=== PATIENT | male | born 1990 | race Caucasian/White ===

== ENCOUNTER → 2017-08-16 16:41 | Outpatient (CLI) | payer OTHER, SELFPAY ==
[2017-08-16 19:35] LABS: Free T4 (Free Thyroxine) 1.17 ng/dl (0.76-1.46); Thyroid Stimulating Hormone 5.03 uIU/ml (0.358-3.740)
== END ==
PROVIDERS: PCP Family Medicine; Visit Provider Family Medicine
DX: E03.9 Hypothyroidism, unspecified (principal)
CPT/HCPCS: 36415; 84439; 84443

== ENCOUNTER → 2018-06-10 16:24 | Outpatient (CLI) | payer OTHER, SELFPAY ==
[2018-06-10 18:57] LABS: Free T4 (Free Thyroxine) 1.36 ng/dl (0.76-1.46); Thyroid Stimulating Hormone 3.13 uIU/ml (0.358-3.740)
== END ==
PROVIDERS: Visit Provider Family Medicine
DX: E03.9 Hypothyroidism, unspecified (principal)
CPT/HCPCS: 36415; 84439; 84443

== ENCOUNTER → 2018-12-23 15:42 | Outpatient (CLI) | payer OTHER, SELFPAY ==
[2018-12-23 18:13] LABS: Free T4 (Free Thyroxine) 0.94 ng/dl (0.76-1.46); Thyroid Stimulating Hormone 4.47 uIU/ml (0.358-3.740)
== END ==
PROVIDERS: Visit Provider Family Medicine
DX: E03.9 Hypothyroidism, unspecified (principal)
CPT/HCPCS: 36415; 84439; 84443

== ENCOUNTER → 2019-07-16 10:34 | Outpatient (CLI) | payer OTHER, SELFPAY ==
[2019-07-16 13:47] LABS: Free T4 (Free Thyroxine) 0.93 ng/dl (0.78-2.19)
[2019-07-16 14:01] LABS: Thyroid Stimulating Hormone 3.93 uIU/mL (0.465-4.68)
== END ==
PROVIDERS: Visit Provider Family Medicine
DX: E03.9 Hypothyroidism, unspecified (principal)
CPT/HCPCS: 36415; 84439; 84443

== ENCOUNTER 2020-05-13 17:51 | Emergency (ER) | payer OTHER, SELFPAY ==
[2020-05-13 18:51] VITALS: BP 112/64; PULSE 61; RESP 16; O2SAT 99; BMI 25.9
--- NOTE | 2020-05-13 18:54 | HMH.EDUTC ---
[facility] [place] Impression: Close exposure to COVID-19 virus Disposition: Home, Self-Care Condition on Discharge: Good Instructions: DI for COVID-19 (Suspected or Confirmed ), Preventing the Spread of Coronavirus Discharge Instructions Additional Instructions: *Monitor Temp, Over the counter Motrin or Tylenol as directed/as needed Tylenol every 4 hours and Motrin every 6 hours (as long as your family doctor has told you that you can take it) for fever or pain. and straight to ER if unable to lower temp less than 101.0 after medication given Follow up IMMEDIATELY for new or worsening symptoms or no Noticeable improvement over the next 48-72 hours. 911 for difficulty breathing or swallowing You were tested for today for COVID19 your test result should be back in the next 24-48 hours, you may call to the [facility] to see if your test results are back in the next 48 hours [phone] [facility] hours are 9am-9pm You was given a handout with instructions for Self Quarantine and Self isolation for while you wait on test results and what to do if they are positive If you are positive the Health Dept will be contacting you also Referrals: Luis Felipe Upton MD [Primary Care Provider] - As needed Forms: Work/School Release Time of Disposition: 18:58 Medical Decision Making - Zhen Inquiry Pt receiving controlled substance: No Zhen was queried for this patient: No Vital Signs: 05/13/20 18:51 Pulse Rate [Right] 61 Respiratory Rate 16 Blood Pressure [Right Arm] 112/64 Blood Pressure Mean [Right Arm] 80 02 Sat by Pulse Oximetry 99 Orders (Tests/Meds): ORDERS Category Date Time Status Covid-19 Nasal PCR ([facility]) Routine Lab 05/13/20 18:55 [place]dered [facility] [place] - General Stated complaint: Covid test Time Seen by Provider: 05/13/20 18:54 Mode of Arrival: Ambulatory Source of Information: Patient Limitations: No Limitations Description of Symptoms (Recalled from Triage Doc. by RN): pt advises he was exposed to covid but denies any symptoms HEENT Symptoms (Recalled from RN notes): No Resp Symptoms (Recalled from RN notes): No Skin Symptoms (Recalled from RN notes): No MS Symptoms (Recalled from RN notes): No Functional Status (Recalled from RN notes): na - History of Present Illness Provider Complaint: Patient states that his roommate recently tested positive for COVID States that he isnt having any symptoms but due to exposure he wanted to get tested - Related Data Previous Rx's Medication Instructions Recorded Triamcinolone Acetonide 1 applicatio TP TIDP PRN 7 Days #1 12/28/18 tube methylPREDNISolone [Medrol] 4 mg PO DIRECTED 6 Days #21 12/28/18 [email or web address] Allergies Allergy/AdvReac Type Severity Reaction Status Date / Time No Known Allergies Allergy Unverified 04/30/17 14:53 - Worker's Comp Is this a Worker's Comp case?: No [facility] History - Hepatitis A Screen Drug use history?: No High risk sexual behaviors?: No History of sexually transmitted infection?: No Currently employed?: No Childcare worker?: No Do you have indoor plumbing?: Yes Do you have electricity?: Yes Attestation statement:: This patient has been screened for Hepatitis A risk factors. I have reviewed the patient's past medical history: Yes - Social History Smoking Status: Never smoker Alcohol Intake: never Occupational Status: employed ROS Obtained: Yes All systems reviewed & no additional complaints, Yes Systems reviewed as appropriate & no additional complaints - Constitutional Constitutional: Reports system reviewed and no additional complaints, except as docu, Denies body ache, Denies chills, Denies fever(s), Denies headache(s) - ENT Ears, Nose, Mouth, and Throat: Reports system reviewed and no additional complaints, except as docu, Denies nasal congestion, Denies nasal discharge, Denies sore throat - Cardiovascular Cardiovascular: Reports system reviewed and no additional complaints, except as docu - R
[2020-05-13 19:01] VITALS: BP 112/64; PULSE 87; RESP 16; TEMP 36.9; O2SAT 98
--- NOTE | 2020-05-14 13:22 | PC.NURSE ---
patient notified of positive covid results
== END 2020-05-13 19:02 | disposition home or self-care (01) ==
PROVIDERS: Emergency Provider Nurse Practitioner; PCP Family Medicine
DX: U07.1 COVID-19 (principal)
CPT/HCPCS: 99202; G0463; U0003

== ENCOUNTER 2020-05-21 17:59 | Emergency (ER) | payer OTHER, SELFPAY ==
[2020-05-21 18:20] VITALS: BP 136/78; PULSE 75; RESP 19; TEMP 36.8; O2SAT 98; BMI 26.2
--- NOTE | 2020-05-21 18:38 | HMH.EDUTC ---
[facility] [place] Disposition Clinical Impression: Encounter for laboratory testing for COVID-19 virus Disposition: Home, Self-Care Condition on Discharge: Good Instructions: DI for COVID-19 (Suspected or Confirmed ), Coronavirus Disease 2019, Preventing the Spread of Coronavirus Discharge Instructions Additional Instructions: *Monitor Temp, Over the counter Motrin or Tylenol as directed/as needed Tylenol every 4 hours and Motrin every 6 hours (as long as your family doctor has told you that you can take it) for fever or pain. and straight to ER if unable to lower temp less than 101.0 after medication given Follow up IMMEDIATELY for new or worsening symptoms or no Noticeable improvement over the next 48-72 hours. 911 for difficulty breathing or swallowing You were tested for today for COVID19 your test result should be back in the next 24-48 hours, you may call to the [facility] to see if your test results are back in the next 48 hours [phone] [facility] hours are 9am-9pm You was given a handout with instructions for Self Quarantine and Self isolation for while you wait on test results and what to do if they are positive If you are positive the Health Dept will be contacting you also The U.S. Centers for Disease Control and Prevention has updated its guidelines for when employees can return to work after aly COVID-19. The CDC issued new guidance December 01 that employees can return to work and resume other normal activities after getting the virus provided they meet each of these criteria: At least 10 days have passed since they first had symptoms, or 10 days have passed since an initial positive test if they had no symptoms They have been fever-free for 24 hours without the aid of fever-reducing medication, such as acetaminophen or ibuprofen All other COVID-related symptoms continue to improve Referrals: Luis Felipe Upton MD [Primary Care Provider] - As needed Forms: Work/School Release Time of Disposition: 18:39 Medical Decision Making - Zhen Inquiry Pt receiving controlled substance: No Zhen was queried for this patient: No Vital Signs: 05/21/20 18:20 Temperature 98.2 F Temperature Source Oral Pulse Rate [Right Brachial] 75 Respiratory Rate 19 Blood Pressure [Right Arm] 136/78 Blood Pressure Mean [Right Arm] 97 Blood Pressure Source [Right Arm] Automatic Cuff Blood Pressure Position [Right Arm] Sitting 02 Sat by Pulse Oximetry 98 Oxygen Delivery Method Room Air Orders (Tests/Meds): ORDERS Category Date Time Status Covid-19 Nasal PCR ([facility]) Routine Lab 05/21/20 18:25 Received [facility] [place] HPI - General Stated complaint: Covid 19 Test for work Time Seen by Provider: 05/21/20 18:38 Mode of Arrival: Ambulatory Source of Information: Patient Limitations: No Limitations Description of Symptoms (Recalled from Triage Doc. by RN): PATIENT REQUESTING COVID TEST. STATES HE TESTED POSITIVE LAST SATURDAY. DENIES SYMPTOMS HEENT Symptoms (Recalled from RN notes): No Resp Symptoms (Recalled from RN notes): No Skin Symptoms (Recalled from RN notes): No MS Symptoms (Recalled from RN notes): No Functional Status (Recalled from RN notes): WNL - History of Present Illness Provider Complaint: Patient states that he tested positive last week for COVID States that he has to get retested for work States that they told him he had to have a negative test or release to come back to work - Related Data Previous Rx's Medication Instructions Recorded Triamcinolone Acetonide 1 applicatio TP TIDP PRN 7 Days #1 12/28/18 tube methylPREDNISolone [Medrol] 4 mg PO DIRECTED 6 Days #21 12/28/18 [email or web address] Allergies Allergy/AdvReac Type Severity Reaction Status Date / Time No Known Allergies Allergy Verified 05/21/20 18:38 - Worker's Comp Is this a Worker's Comp case?: No [facility] History - Hepatitis A Screen Drug use history?: No High risk sexual behaviors?: No History of sexually transmitted infection?: No Currently empl
[2020-05-21 18:54] VITALS: BP 136/78; PULSE 75; RESP 19; TEMP 36.8; O2SAT 98
--- NOTE | 2020-05-22 21:16 | PC.NURSE ---
ATTEMPTED TO CALL PT ABOUT COVID RESULT. NO ANSWER.
--- NOTE | 2020-05-23 10:56 | PC.NURSE ---
patient notified of positive covid results
== END 2020-05-21 18:55 | disposition home or self-care (01) ==
PROVIDERS: Emergency Provider Nurse Practitioner; PCP Family Medicine
DX: U07.1 COVID-19 (principal)
CPT/HCPCS: 99202; G0463; U0003

== ENCOUNTER 2020-06-09 18:54 | Emergency (ER) | payer OTHER, SELFPAY ==
[2020-06-09 19:11] VITALS: BP 143/88; PULSE 79; RESP 18; TEMP 37.1; O2SAT 99; BMI 26.2
--- NOTE | 2020-06-09 19:18 | HMH.EDUTC ---
[facility] [place]: Blood in stool Disposition: Still a Patient Condition on Discharge: Good Referrals: Luis Felipe Upton MD [Primary Care Provider] - Time of Disposition: 19:34 Medical Decision Making - Zehn Inquiry Pt receiving controlled substance: No Zhen was queried for this patient: No Vital Signs: 06/09/20 19:11 Temperature 98.7 F Temperature Source Oral Pulse Rate [Left] 79 Respiratory Rate 18 Blood Pressure [Right Arm] 143/88 H Blood Pressure Mean [Right Arm] 106 Blood Pressure Source [Right Arm] Automatic Cuff Blood Pressure Position [Right Arm] Sitting 02 Sat by Pulse Oximetry 99 Oxygen Delivery Method Room Air Medical Decision Narrative: Discussed with patient and recommended transfer to the ED for further work up and evaluation due to blood in stool and patient agreed. Patient still denies abd pain, feeling ill etc. Patient agreed to transfer due to new onset of bright red blood in stools Called Ed spoke with Marga Abarca RN and report given and patient moved to Room 9 for further work up and evaluation [facility] [place] - General Stated complaint: Blood with bowel movement Time Seen by Provider: 06/09/20 19:18 Mode of Arrival: Ambulatory Source of Information: Patient Limitations: No Limitations Description of Symptoms (Recalled from Triage Doc. by RN): pt states he was having bright red bloody stool today. this lasted about thirty minutes. no abd pain or other symptoms. HEENT Symptoms (Recalled from RN notes): No Resp Symptoms (Recalled from RN notes): No Skin Symptoms (Recalled from RN notes): No MS Symptoms (Recalled from RN notes): No Functional Status (Recalled from RN notes): na - History of Present Illness Provider Complaint: Patient states that he went to the bathroom earlier and when he got up he noticed a large amount of bright red blood in the toilet with his stool States that he also had large amount of blood on tissue. State that he has not had any diarrhea, no constipation, no abdominal pain States that he did not strain nor has history of hemorrhoids States that he has never had this happen before States that he eats healthy and not having any pain or discomfort at this time. - Related Data Previous Rx's Medication Instructions Recorded Triamcinolone Acetonide 1 applicatio TP TIDP PRN 7 Days #1 12/28/18 tube methylPREDNISolone [Medrol] 4 mg PO DIRECTED 6 Days #21 12/28/18 [email or web address] Allergies Allergy/AdvReac Type Severity Reaction Status Date / Time No Known Allergies Allergy Verified 05/21/20 18:38 - Worker's Comp Is this a Worker's Comp case?: No [facility] History - Hepatitis A Screen Drug use history?: No High risk sexual behaviors?: No History of sexually transmitted infection?: No Currently employed?: No Childcare worker?: No Do you have indoor plumbing?: Yes Do you have electricity?: Yes Attestation statement:: This patient has been screened for Hepatitis A risk factors. I have reviewed the patient's past medical history: Yes Laterality Cases: Bilateral: Tonsillectomy - Social History Smoking Status: Never smoker Alcohol Intake: never Occupational Status: employed ROS Obtained: Yes All systems reviewed & no additional complaints, Yes Systems reviewed as appropriate & no additional complaints - Constitutional Constitutional: Reports system reviewed and no additional complaints, except as docu, Denies body ache, Denies chills, Denies headache(s) - Gastrointestinal Gastrointestingal: Reports: bright red blood in stools. Denies: abdominal pain, coffee ground emesis, cramping, diarrhea, vomiting blood Comments: Reports large amount of bright red blood in toilet after he had a BM earlier denies history of hemorrhoids and state that he has never had this before Physical Exam - General General appearance: alert, in no apparent distress - Respiratory Respiratory exam: Present: normal lung sounds bilaterally. Absent: res
[2020-06-09 19:35] VITALS: BP 138/84; PULSE 79; RESP 15; TEMP 36.6; O2SAT 98; BMI 26.2
[2020-06-09 20:06] LABS: Basophils # 0.1 K/mm3 (0-0.2); Basophils % 0.7 % (0.1-2.0); Eosinophils # 0.4 K/mm3 (0.0-0.4); Eosinophils % 5.2 % (0.1-12.0); Hematocrit 48.8 % (42.0-52.0); Hemoglobin 16.8 g/dL (14.1-18.0); Lymphocytes # 2.6 K/mm3 (0.7-4.5); Lymphocytes % 37.9 % (10-50); Mean Corpuscular HGB Conc 34.5 g/dL (31.8-35.4); Mean Corpuscular Hemoglobin 31.6 pg (27.0-31.2); Mean Corpuscular Volume 91.5 fl (80-94); Mean Platelet Volume 7.3 fl (7.4-10.4); Monocytes # 0.5 K/mm3 (0.1-1.0); Monocytes % 7.7 % (1.7-9.3); Neutrophils # 3.4 K/mm3 (1.8-7.8); Neutrophils % 48.5 % (37.0-80.0); Platelet Count 204 K/mm3 (142-424); Red Blood Count 5.34 M/mm3 (4.60-6.20)
[2020-06-09 20:09] LABS: Chloride 100 mmol/L (98-107); Potassium 3.9 mmoL/L (3.5-5.1); Sodium 138 mmol/L (136-145)
[2020-06-09 20:11] LABS: Blood Urea Nitrogen 29 mg/dl (9-20); Creatinine Clearance Estimated 120 mL/min (50-200); Estimated Glomerular Filt Rate 72 ml/min (>60); GFR (African American) 87 ML/MIN (>60)
[2020-06-09 20:12] LABS: Alanine Aminotransferase 33 U/L (12-78); Albumin Level 4.9 g/dl (3.5-5.0); Albumin/Globulin Ratio 1.7 (1.1-1.8); Alkaline Phosphatase 51 U/L (38-126); Anion Gap 11.9 mEq/L (5-15); Aspartate Amino Transferase 40 U/L (17-59); Bilirubin,Total 0.6 mg/dl (0.2-1.3); Carbon Dioxide 30 mmol/L (22.0-30.0); Globulin 2.9 g/dL (1.3-3.2); Total Protein,Serum 7.8 g/dl (6.3-8.2)
[2020-06-09 20:13] LABS: Calcium 9.9 mg/dl (8.4-10.2); Glucose 118 mg/dl (74-100)
--- NOTE | 2020-06-09 20:14 | HMH.EDGENADL ---
ED Disposition Clinical Impression: Blood in stool Disposition: Still a Patient Condition on Discharge: Good Instructions: DI for Gastrointestinal Bleeding Additional Instructions: He may have internal hemorrhoids noted on exam. Use Preparation H, sitz bath's, and a high-fiber diet to try to avoid complications in the future. Follow-up with your doctor for further management. Immediately return if any lightheadedness/shortness of breath, chest pain, worsening bright red blood per rectum, abdominal pain, other new concerning symptoms. Referrals: Luis Felipe Upton MD [Primary Care Provider] - - Critical Care Critical Care Time: No Attestation: On 06/09/20, the high probability of a clinically significant, sudden or life threatening deterioration of the following system(s) required my full and direct attention, intervention and personal management. The time I documented below is in addition to time spent performing reported procedures but includes the following listed in this critical care notation. Medical Decision Making - Medical Records Medical records reviewed: Yes: I reviewed the patient's medical records. - Zhen Inquiry Pt receiving controlled substance: No Vital Signs: 06/09/20 19:11 06/09/20 19:35 Temperature 98.7 F 97.8 F Temperature Source Oral Oral Pulse Rate [Left] 79 79 Respiratory Rate 18 15 Blood Pressure [Right Arm] 143/88 H 138/84 Blood Pressure Mean [Right Arm] 106 102 Blood Pressure Source [Right Arm] Automatic Cuff Automatic Cuff Blood Pressure Position [Right Arm] Sitting Sitting 02 Sat by Pulse Oximetry 99 98 Oxygen Delivery Method Room Air Room Air - Lab Data Lab Results 06/09/20 19:40: WBC 7.0, RBC 5.34, Hgb 16.8, Hct 48.8, MCV 91.5, MCH 31.6 H, MCHC 34.5, RDW 13.0, Plt Count 204, MPV 7.3 L, Neut % (Auto) 48.5, Lymph % (Auto) 37.9, Jennings % (Auto) 7.7, Eos % (Auto) 5.2, Baso % (Auto) 0.7, Neut # (Auto) 3.4, Lymph # (Auto) 2.6, Jennings # (Auto) 0.5, Eos # (Auto) 0.4, Baso # (Auto) 0.1 06/09/20 19:40: Sodium 138, Potassium 3.9, Chloride 100, Carbon Dioxide 30, Anion Gap 11.9, BUN 29 H, Creatinine 1.20, Estimated Creat Clear 120, Estimated GFR 72, Est GFR ( Amer) 87, Glucose 118 H, Calcium 9.9, Total Bilirubin 0.6, AST 40, ALT 33, Alkaline Phosphatase 51, Total Protein 7.8, Albumin 4.9, Globulin 2.9, Albumin/Globulin Ratio 1.7 06/09/20 20:25: Stool Occult Blood Positive A Result diagrams: 06/09/20 19:40 06/09/20 19:40 Orders (Tests/Meds): ORDERS Category Date Time Status Urinalysis and Microscopic Stat Lab 06/09/20 19:47 Ordered Medical Decision Narrative: Patient presents with bright red blood per rectum x1 episode today. No lightheadedness. No abdominal pain. Differential includes IBS versus IBD versus anal fissure versus hemorrhoid. I do believe patient may be suffering from hemorrhoids. Basic lab work checked confirming a heme positive stool with a normal hemoglobin. No indication for patient be hospitalized. I went over sitz bath's, Preparation H, and a high-fiber diet or conservative management. He agrees with the above listed plan. Patient discharged in stable condition with instructions to follow-up with his PCP for further management. He will return immediately if worsening bright red blood per rectum, lightheadedness, abdominal pain, nausea/vomiting, other new concerning symptoms. Assessment: Bright red blood per rectum Disposition: Home with follow-up General Adult HPI - General Chief complaint: GI Bleed Stated complaint: Blood with bowel movement Time Seen by Provider: 06/09/20 19:18 Mode of Arrival: Family Vehicle Limitations: No Limitations Description of Symptoms (Recalled from ER Triage Doc. by RN): pt describes having a bowel movement at 1830, followed by moderate bright red blood. states he never has had anything like it before and has no other associated symptoms. was seen at [facility] and sent to er. patient further denies n/v/d. denies a
[2020-06-09 20:33] LABS: Occult Blood,Stool Positive (Negative)
[2020-06-09 21:03] VITALS: BP 137/84; PULSE 76; RESP 14; TEMP 36.6; O2SAT 98
== END 2020-06-09 21:05 | disposition still patient (30) ==
LOC: UTC 18:58 → ER 19:30
PROVIDERS: Emergency Medicine; Emergency Provider Emergency Medicine; PCP Family Medicine
DX: K92.1 Melena (principal); K64.8 Other hemorrhoids
CPT/HCPCS: 80053; 82272; 85025; 99282; G0328

== ENCOUNTER 2024-01-16 15:13 | Outpatient (CLI) | payer BC, SELFPAY ==
--- NOTE | 2024-01-16 15:22 | CT_ITS ---
PROCEDURE INFORMATION: Exam: CT Abdomen And Pelvis With Contrast Exam date and time: 01/16/2024 4:58 PM Age: 33 years old Clinical indication: Abdominal pain; Localized; Right lower quadrant (rlq); Additional info: Rlq pain; R/O appendicitis TECHNIQUE: Imaging protocol: Computed tomography of the abdomen and pelvis with contrast. Radiation optimization: All CT scans at this facility use at least one of these dose optimization techniques: automated exposure control; mA and/or kV adjustment per patient size (includes targeted exams where dose is matched to clinical indication); or iterative reconstruction. Contrast material: ISOVUE; Contrast volume: 75 ml; Contrast route: IV; Other contrast: Oral, gastro, 30; COMPARISON: No relevant prior studies available. FINDINGS: Lungs: There is a calcified granuloma at the medial right lung base. Liver: Normal. Gallbladder and biliary ducts: No acute process. Pancreas: Normal. Spleen: Normal. Adrenal glands: The adrenal glands appear normal. Kidneys and ureters: There are no soft tissue renal masses or hydronephrosis. Stomach and bowel: The stomach, small bowel, and colon are well-distended and show no evidence of wall thickening, masses, or obstruction. Appendix: No evidence of appendicitis. Intraperitoneal space: Unremarkable. Vasculature: The abdominal aorta and its major branches appear normal without evidence of aneurysm or stenosis. There are pelvic phleboliths. Lymph nodes: No lymphadenopathy. Urinary bladder: There is significant inflammatory change within the right lower quadrant. There is a 4.9 x 4.6 x 3.8 cm multiloculated fluid collection (image 353 series 4 and image 33 series 604). There is likely reactive wall thickening of the adjacent urinary bladder. Reproductive: No acute process. Bones/joints: The visualized osseous structures of the abdomen and pelvis appear normal for patient age. Soft tissues: Unremarkable. IMPRESSION: Findings consistent with perforated appendicitis with a 5 cm abscess.
[2024-01-16] MEDS: IOPAMIDOL-370 (76%);100ML BOTTLE 75 ML IV (16:50)
[2024-01-16] MEDS: DIATRIZOATE MEG 66% & DIATRIZOATE NA 10% 30ML UDC 30 ML PO (16:50)
[2024-01-16] MEDS: SODIUM CHLORIDE 0.9% 10ML SYR (RAD ONLY) 10 ML IV (16:50)
== END 2024-01-16 23:59 | disposition home or self-care (01) ==
LOC: RAD 15:15
PROVIDERS: PCP Physician Assistant; Visit Provider Physician Assistant
DX: R10.31 Right lower quadrant pain (principal)
CPT/HCPCS: 74177; Q9963; Q9967

== ENCOUNTER 2024-02-28 17:54 | Emergency (ER) | payer BC, SELFPAY ==
--- NOTE | 2024-02-28 18:16 | ED_ITS ---
Discharge Plan Disposition Patient Disposition: Home, Self-Care Condition: Good Prescriptions Prescriptions: New azithromycin [Zithromax] 250 mg tablet 250 mg PO UD DOSE PK Qty: 6 0RF Rx Instructions: Take two (2) tablets today, then one (1) tablet days #2 thru #5 methylprednisolone 4 mg Tablets,Dose Pack 4 mg PO DIRECTED 6 Days Qty: 21 0RF Rx Instructions: Take 1 pack as directed for 6 days dzghbdmxqzjejfq-qskxbftqt-JJ [Bromfed DM] 2-30-10 mg/5 mL Syrup 5 ml PO Q6H PRN (Reason: Cough) Qty: 240 0RF No Action levothyroxine 125 mcg tablet 125 mcg PO DAILY Patient Comments: TAKE 1 TABLET BY MOUTH DAILY IN THE MORNING ON AN EMPTY STOMACH Referrals Follow up/Referrals: Jolynn Quick PA [Primary Care Provider] - See instructions Activity Restrictions/Add. Instructions Additional Instructions/Restrictions: Drink plenty of fluids. Take tylenol or ibuprofen for pain or fever. Take the medications as directed. Follow up with your regular doctor. GO TO THE ER FOR ANY WORSENING SYMPTOMS Clinical Impressions Clinical Impression: Sinusitis Instructions Patient Instructions: Sinusitis, DI for Sinusitis Print Language Print Language: Bruneian Discharge ED Provider: Stevie Finn [facility] HPI General Stated complaint: Runny nose,congestion,pressure,around eyes,VALERIO,cou Time Seen by Provider: 02/28/24 18:16 Related Data Home Medications ?Medication ?Instructions ?Recorded ?Confirmed levothyroxine 125 mcg tablet 125 mcg PO DAILY 02/28/24 02/28/24 Previous Rx's ?Medication ?Instructions ?Recorded azithromycin 250 mg tablet 250 mg PO UD DOSE PK #6 tabs 02/28/24 (Zithromax) kiymjiaeafkkgpk-pdksngsaubvoqqc-QJ 5 ml PO Q6H PRN Cough #240 mL 02/28/24 2 mg-30 mg-10 mg/5 mL oral syrup (Bromfed DM) methylprednisolone 4 mg tablets in 4 mg PO DIRECTED 6 days #21 tabs 02/28/24 a dose pack Allergies Allergy/AdvReac Type Severity Reaction Status Date / Time No Known Allergies Allergy Verified 05/21/20 18:38 [facility] Disclaimer: The information contained in this section may have been updated after the patient was seen, as this information can be updated by other users. Social History Smoking Status: Never smoker alcohol intake: never current occupational status: employed Travel in the last 8 weeks: None ROS Obtained: Yes All systems reviewed & no additional complaints except as documented Constitutional Constitutional: Reports poor appetite Eyes Eyes: Reports system reviewed and no additional complaints, except as documented ENT Ears, Nose, Mouth, and Throat: Reports as per HPI Cardiovascular Cardiovascular: Reports system reviewed and no additional complaints, except as documented and Denies chest pain Respiratory Respiratory: Denies shortness of breath, Reports chest congestion, Reports cough, Denies stridor and Denies wheezing Gastrointestinal Gastrointestingal: Reports system reviewed and no additional complaints, except as documented; Denies abdominal pain, diarrhea or vomiting Musculoskeletal Musculoskeletal: Reports system reviewed and no additional complaints, except as documented and Denies arthralgias Integumentary/Breasts Skin/Breast: Reports system reviewed and no additional complaints, except as documented and Denies rash Neurologic Neurologic: Denies paresthesias Allergic/Immunologic Allergic/Immunologic: Denies wheezing Physical Exam General General appearance: alert and in no apparent distress Eye Eye exam: Present normal appearance, PERRL and EOMI ENT ENT exam: Present mucous membranes moist and normal external ear exam Expanded ENT Exam External ear exam: Present normal external inspection TM/Canal exam: Bilateral TM: erythema and bulging Nose exam: Absent sinus tenderness Nasal speculum exam: Bilateral: normal Mouth exam: Present normal external inspection; Absent drooling Teeth exam: Present normal inspection Throat exam: Present tonsillar erythema and tonsillomegaly Neck Neck exam: Present normal inspection, full ROM and trachea midline; Absent tenderness, lymphadenopathy or thyromegaly Chest Chest inspection: Present normal inspection and symmetric chest wall rise; Absent tenderness or rash Respiratory Respiratory exam: Present normal lung sounds bilaterally; Absent respiratory distress, wheezes, stridor or accessory muscle use Cardiovascular Cardiovascular exam: Present regular rate, normal rhythm and normal heart sounds Abdominal Exam Abdominal exam: Present soft; Absent distention, tenderness, guarding, rebound or rigidity Extremities Exam Extremities exam: Present normal inspection, full ROM and normal capillary refill; Absent tenderness or calf tenderness Back Exam Back exam: Present normal inspection and full ROM; Absent tenderness Neurological Exam Neurological exam: Present alert and oriented X3 Psychiatric Psychiatric exam: Present normal affect and normal mood Skin Skin exam: Present warm, dry, intact and normal color Lymphatic Lymphatic Findings: no adenopathy Medical Decision Making Medical Records Medical records reviewed: No I reviewed the patient's medical records. Screening: Per USPSTF and CDC recommendations, given the prevalence of disease in our region, it is our hospital?s policy to screen for HIV and viral Hepatitis for all patients aged 18 and over and those with ongoing risk factors. Zhen Inquiry Pt receiving controlled substance: No
[2024-02-28 18:20] VITALS: BP 140/84; PULSE 72; RESP 18; TEMP 37.7; O2SAT 99; BMI 29.7
[2024-02-28 18:55] VITALS: BP 140/84; PULSE 72; RESP 18; TEMP 37.7
== END 2024-02-28 18:57 | disposition home or self-care (01) ==
PROVIDERS: Emergency Provider Nurse Practitioner Family; PCP Physician Assistant
DX: J01.90 Acute sinusitis, unspecified (principal)
CPT/HCPCS: 99213; G0381

== ENCOUNTER 2024-11-06 13:00 | Outpatient (RCR) | payer BC, SELFPAY | END 2024-11-06 23:59 | disposition home or self-care (01) | LOC: OT 13:00 | PROVIDERS: PCP Physician Assistant; Visit Provider Family Medicine | DX: M25.511 Pain in right shoulder (principal) | CPT/HCPCS: 97014; 97110; 97140; 97166; 97530; G0283 ==

== ENCOUNTER 2024-12-01 11:00 | Outpatient (RCR) | payer BC, SELFPAY | END 2024-12-01 23:59 | disposition home or self-care (01) | LOC: OT 11:00 | PROVIDERS: PCP Physician Assistant; Visit Provider Family Medicine | DX: M25.511 Pain in right shoulder (principal) | CPT/HCPCS: 97014; 97032; 97035; 97110; 97140; 97168; 97530; G0283 ==

== ENCOUNTER → 2024-12-03 07:52 | Outpatient (RCR) | payer BC, SELFPAY ==
--- NOTE | 2024-12-03 09:37 | HMH.PTOPEV ---
PT Outpatient Evaluation Rehab PT Outpatient Evaluation Start: 12/03/24 07:58 Freq: Status: Active Protocol: Document 12/03/24 07:58 BEVERLYSILVANA (Rec: 12/03/24 09:37 WATSON [id number]) E-signed By Danielle Ellis, PT Outpatient Therapy Subjective History Subjective History Pt is a 34 y/o male who reports onset of R anterolateral shoulder pain in August. 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 Pt states his appendix ruptured and he had to have surgery causing him to be sedentary from January to August. Pt reports pain started following restarting weight lifting when he recovered. Pt denies having imaging of the R shoulder. Pt reports continued R anterolateral shoulder pain exacerbated by repetitive reaching overhead and lifting especially chest press and lat pulldowns. Pt also reports mild right sided upper trapezius and scapular pain he thinks is due to compensating when lifting. Pt reports his shoulder also catches anteriorly when he lifts his arm to the side with nonpainful popping. Pt denies clunking, instability, swelling, numbness/tingling, or decreased moulder operator strength. Pt denies further comorbidities to report. 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 Chief Complaint Pain,Catches/Locks Symptom Type Ache,Sharp Symptoms Relieved By Rest/Positioning,Ice Symptoms Aggravated Physical Activity,Lifting By Prior Functional None Limitations Current Functional Reaching,Lifting,Recreation Activity Limitations Symptom Description Intermittent Level of pain today 0 (0-10) Pain scale - at its 0 best (0-10) Pain scale - at its 7 worst (0-10) Shoulder/Elbow Eval Shoulder Objective Measurements Palpation Tenderness tenderness shoulder right exam standard tenderness over the right bicipital tendon shoulder exam standard Shoulder Palpation Tenderness Findings Shoulder Palpation 2/4 TTP of long head bicep tt, pec major/min insertion, Overall Comment greater tub, infra Posture Shoulder Posture (L) Rounded,(R) Rounded,(L) Forward,(R) Forward Sitting Position Shoulder Posture (L) Rounded,(R) Rounded,(L) Forward,(R) Forward Standing Position Scapular Posture (R) Winged Standing Position Shoulder ROM Right Shoulder Abduction 160 Active Range of Motion (degrees) Shoulder Flexion 170 Active Range of Motion (degrees) Query Text: Shoulder External 70 Rotation Active Range of Motion ( degrees) Shoulder Internal 80 Rotation Active Range of Motion ( degrees) pain with active ROM right shoulder exam standard Shoulder MMT Lower Trapezius 4 Good Strength Grade Middle Trapezius 4 Good Strength Grade Rhomboids Strength 4+ Good+ Grade Serratus Anterior 4 Good Strength Grade Upper Trapezius/ 4+ Good+ Levator Scapulae Shoulder Abduction 4+ Good+ Strength Grade Shoulder Extension 4+ Good+ Strength Grade Shoulder Flexion 4+ Good+ Strength Grade Shoulder Horizontal 4+ Good+ Abduction Strength Grade Shoulder External 4 Good Rotation Strength Grade Shoulder Internal 4+ Good+ Rotation Strength Grade Elbow Objective Measurements QuickDA Activities Please rate your ability to do the following activities in the last week by selecting the number below the appropriate response. 1. Open a tight or Mild difficulty new jar. 2. Do heavy Mild difficulty cook apprentice pastry (e. g., wash cardona, floors). 3. Carry a shopping No difficulty bag or briefcase. 4. Wash your back. No difficulty 5. Use a knife to No difficulty cut food. 6. Recreational Severe difficulty activities in which you take some force or impact through your arm, shoulder, or hand (e.g., golf, hammering, tennis, etc.). 7. During the past Not at all week, to what extent has your arm, shoulder or hand problem interfered with your normal social activities with family, friends , neighbors or groups? 8. During the past Moderately limited week, were you limited in your work or other regular daily activites as a result of your arm, shoulder or hand problem? 9. Arm, shoulder or Severe hand pain. 10. Tingling (pins None and needles) in your arm, shoulder or hand. 11. During the past Mild difficulty week, how much difficulty have you had sleeping because of the pain in your arm, shoulder or hand? Quick DASH 22 Work Module (optional) The following questions ask about the impact of your arm, shoulder or hand problem on your ability to work (including homemaking if that is your main work role). Please indicate what Automatic Gluing Machine Operator your job/work is: Do you work? Yes 1. Using your usual Severe difficulty technique for your work? 2. Doing your usual Severe difficulty work because of arm, shoulder or hand pain? 3. Doing your work Severe difficulty as well as you would like? 4. Spending your Moderate difficulty usual amount of time doing your work? Quick Dash Work 15 Module Score Sports/Performing Arts Module (optional) The following questions relate to the impact of your arm, shoulder or hand problem on playing your musical instrument or sport or both. If you play more than one sport or instrument (or play both), please answer with respect to the activity which is most important to you. Please indicate the Server Systems Administrator sport or instrument which is most important to you: 1. Using your usual Severe difficulty technique for playing your instrument or sport? 2. Playing your Severe difficulty musical instrument or sport because of arm, shoulder or hand pain? 3. Playing your Severe difficulty musical instrument or sport as well as you would like? 4. Spending your Moderate difficulty usual amount of time practicing or playing your instrument or sport? Quick Dash Sports/ 15 Performing Art Score Outpatient Therapy Assessment Impairments Problems/ Palpation Tenderness,Impaired Range of Motion,Impaired Impairmments Strength,Impaired Lifting,Impaired Recreational Activities,Subjective C/O Pain,Impaired Self Care/Self Management Prognosis Rehab Potential Good Clinical Impression Consistent with Yes Diagnosis Short Term Goals Number of Weeks 3 Increase Range of Yes: demonstrate improved scapulohumeral rhythm with Motion forward flexion Improve Quick Dash Yes Score Decrease Subjective Yes: Improve pain at worst to 5/10 to improve overall C/O Pain QOL Improve Self Care/ Yes Self Management Patient to be Ind w/ Yes HEP Senior Care Goals Number of Weeks 6 Decreased Palpation Yes: 0-1/4 TTP of R shoulder complex Tenderness Increase Range of Yes: Improve R shoulder AROM to WNL Motion Increase Strength Yes: Improve R shoulder/scapular strength to 5/5 grossly to assist w/ occupation Restore Ability to Yes: with pain 3/10 or less to assist with occupational Lift Objects /recreational activities Overhead Improve Quick Dash Yes: Improve Activities score to 17 or less, Work to 10 Score or less Decrease Subjective Yes: Improve pain at worst to 3/10 to improve overall C/O Pain QOL Outpatient Therapy Plan of Care Treatment Plan May Include Therapeutic Exercise Yes Including Home Exercise Program Manual Therapy Yes Techniques Neuromuscular Re- Yes education Therapeutic Yes Activities to Return to Previous Functional/Work Level ADL/Self Care Yes Education Mechanical Traction Yes Dry Needling Yes Thermal Modalities Yes Electrical Yes Stimulation Ultrasound/ Yes Phonophoresis Iontophoresis Yes Vasopneumatic Yes Compression Pump Massage Yes Eval/Re-Eval Yes Frequency Times per week 2 Duration Number of Weeks 4-6 Addendums This patient is a No candidate for social or vocational rehab ? Patient/Guardian Yes verbally acknowledges understanding of treatment program and consents to further treatment? Patient/Guardian Yes verbally acknowledges understanding of diagnosis, prognosis and goals for treatment? Eval Complexity PT Charges 94045 - Low Complexity PHYSICIAN CERTIFICATION: I certify the specified therapy services for Wade Galarza are required, authorized, and reviewed every 30 days.
== END ==
LOC: PT 07:52
PROVIDERS: PCP Physician Assistant; Visit Provider Physician Assistant
DX: M25.511 Pain in right shoulder (principal)
CPT/HCPCS: 20560; 97014; 97110; 97161; G0283

== ENCOUNTER 2025-01-06 10:00 | Outpatient (RCR) | payer BC, SELFPAY ==
--- NOTE | 2024-12-31 17:42 | HMH.RHREAS ---
Rehab Reassessment Rehab OP Re-assessment Start: 12/15/24 11:01 Freq: Status: Active Protocol: Document 12/31/24 11:15 FADISean (Rec: 12/31/24 17:41 WATSON [id number]) E-signed By KRISTEN GillSH Activities Please rate your ability to do the following activities in the last week by selecting the number below the appropriate response. 1. Open a tight or No difficulty new jar. 2. Do heavy No difficulty mortgage loan funder (e. g., wash cardona, floors). 3. Carry a shopping No difficulty bag or briefcase. 4. Wash your back. Moderate difficulty 5. Use a knife to No difficulty cut food. 6. Recreational Moderate difficulty activities in which you take some force or impact through your arm, shoulder, or hand (e.g., golf, hammering, tennis, etc.). 7. During the past Not at all week, to what extent has your arm, shoulder or hand problem interfered with your normal social activities with family, friends , neighbors or groups? 8. During the past Slightly limited week, were you limited in your work or other regular daily activites as a result of your arm, shoulder or hand problem? 9. Arm, shoulder or Moderate hand pain. 10. Tingling (pins None and needles) in your arm, shoulder or hand. 11. During the past Mild difficulty week, how much difficulty have you had sleeping because of the pain in your arm, shoulder or hand? Quick DASH 19 Work Module (optional) The following questions ask about the impact of your arm, shoulder or hand problem on your ability to work (including homemaking if that is your main work role). Please indicate what Barometers Calibrator your job/work is: 1. Using your usual Moderate difficulty technique for your work? 2. Doing your usual Mild difficulty work because of arm, shoulder or hand pain? 3. Doing your work Moderate difficulty as well as you would like? 4. Spending your Mild difficulty usual amount of time doing your work? Quick Dash Work 10 Module Score Sports/Performing Arts Module (optional) The following questions relate to the impact of your arm, shoulder or hand problem on playing your musical instrument or sport or both. If you play more than one sport or instrument (or play both), please answer with respect to the activity which is most important to you. Please indicate the Weight lifting sport or instrument which is most important to you: 1. Using your usual Moderate difficulty technique for playing your instrument or sport? 2. Playing your Mild difficulty musical instrument or sport because of arm, shoulder or hand pain? 3. Playing your Moderate difficulty musical instrument or sport as well as you would like? 4. Spending your Mild difficulty usual amount of time practicing or playing your instrument or sport? Quick Dash Sports/ 10 Performing Art Score Rehab Re-assessment Subjective Subjective Pt reports he feels 25% improved since starting PT. 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 Pt reports pain at worst as 6/10 on VAS. Pt reports the catching sensation when elevating his shoulder and pain with lateral raises has improved although he continues to experience a non-painful grinding sensation of the front of the shoulder with elevation. Pt reports compliance with HEP with good tolerance. Objective Objective Notes Observation: mild scapular winging noted at rest and with overhead elevation Palpation: 1/4 TTP of long head of bicep tt, pectoralis major insertion, subacromial space, rhomboid R shoulder AROM: abduction 175, flexion 170, ER 70, IR 80 R shoulder MMT: flex 5/5 (p!), abd 5/5, ext 4+/5, IR 4+ /5, ER 4+/5 (p!) Scap strength: 4/5 grossly Special tests: + empty can Assessment Progress Assessment Progressing as Expected Assessment Notes Pt has attended 5 PT treatment sessions consisting of aerobic exercise, scapular strengthening, UE stretching , postural re-education, manual therapy, dry needling, modalities and HEP with good tolerance. Pt demonstrated slight improvement in subjective report of pain, QuickDASH score, and shoulder AROM this date compared to the initial evaluation. 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 Overall, the pt would continue to benefit from skilled PT to further improve subjective report of pain, scapular strength, scapular positioning, and functional/occupational activity tolerance to improve overall QOL. PT Patient Goals PT Short Term 3 weeks: 3/4 Patient Goals 1. Demonstrate improved scapulohumeral rhythm with forward flexion -MET 2. Improve QuickDASH score -MET 3. Improve pain at worst to 5/10 to improve overall QOL - NOT MET 4. Verbalize compliance with HEP. -MET PT Long-Term Patient 6 weeks: 2/6 Goals 1. 0-/ TTP of R shoulder complex -MET 2. Improve R shoulder AROM WNL -MET 3. Improve R shoulder/scapular strength 5/5 grossly to assist with occupation -NOT MET 4. Lift overhead with pain 3/10 or less to assist with occupational/recreational activities -NOT MET 5. Improve QuickDASH activities score to 17 or less, work to 10 or less -PARTIALLY MET 6. Improve pain at worst to 3/10 to improve overall QOL -NOT MET Plan Plan Continue initial POC without modification Frequency of Therapy 2x/week Duration of Therapy 4 more weeks Therapeutic Exercise Yes Including Home Exercise Program Manual Therapy Yes Techniques Neuromuscular Re- Yes education Therapeutic Yes Activities to Return to Previous Functional/Work Level ADL/Self Care Yes Education Dry Needling Yes Thermal Modalities Yes Electrical Yes Stimulation Ultrasound/ Yes Phonophoresis Iontophoresis Yes Vasopneumatic Yes Compression Pump Massage Yes Eval/Re-Eval Yes Time and Billing Re-Eval Time 12 Re-Eval Billing 0 Units Charge for PT No reassessment? Charge for OT No reassessment? PHYSICIAN CERTIFICATION: I certify the specified therapy services for Wade Galarza are required, authorized, and reviewed every 30 days.
== END 2025-01-06 23:59 | disposition home or self-care (01) ==
LOC: PT 10:00
PROVIDERS: PCP Physician Assistant; Visit Provider Physician Assistant
DX: M25.511 Pain in right shoulder (principal)
CPT/HCPCS: 20560; 97010; 97014; 97110; 97140; G0283

== ENCOUNTER 2025-01-20 14:05 | Outpatient (CLI) | payer BC, SELFPAY ==
--- OUTSIDE RECORDS SUMMARY | 2024-02-14 09:00 | XMS_ITS ---
Author Organization [facility] Address [address] [place] [id number] Care Team Providers Care Living Manager Name Role Phone Luis Felipe Upton Primary Care Provider [phone] Jolynn Quick Unavailable [phone] Allergies No Known Allergies Results Component Value [...] Location Date Provider Diagnosis [facility] [address] [facility] [address] [place] [phone] 02/14/2024 Jolynn Quick Ruptured appendix K35.32 Assessments [...] Details Follow Up: with surgeon, Renee son: Provider Name:Jolynn herrera, 01/20/2025 01:45:00 PM, [address] [facility], [address], [place], [id number], Progress Notes * VLADIMIR GALARZAOB:1990 (34 yo M)Acc No.[id number]:02/14/2024 Progress Notes Patient: COLBY ISLAS Provider: JOHN Hernandez :1990 A ge:33 Y S ex:Male Date:02/14/2024 Address:[address] [place] [id number] Pcp:Luis Felipe Upton Subjective: * Chief Complaints: [...] Procedure: H ER - passed out 04/25/15, [facility] ER-syncope episode 10/26, [facility] ER - broken bone in hand 11/2018. [...] Procedure Codes: 3 6416 CAPILLARY BLOOD DRAW, 61780 CBC WITH AUTO DIFF * Follow Up: w ith surgeon * Images: Billing Information: * Visit Code: 53653 Office Visit, Est Pt., Level 3. * Procedure Codes: 90453 CAPILLARY BLOOD DRAW. 67784 CBC WITH AUTO DIFF. * Electronic signature of JOHN Roberto on 01/20/2025 at 02:08 PM EDT Sign off status: Pending * Provider: JOHN Hernandez Date: 1 Generated for Joi graves/Haley/eTransmitting on: 0 01/20/2025 02:08 PM EDT History and Physical Notes * HPI [...]
--- OUTSIDE RECORDS SUMMARY | 2024-04-02 06:00 | XMS_ITS ---
Author Organization [facility] Address [address] [place] [id number] Care Team Providers Care Junk Dealer Name Role Phone Luis Felipe Upton Primary Care Provider [phone] Jolynn Quick Unavailable [phone] Allergies No Known Allergies Results Component Value Reference Range Notes CBC Fingerstick (in house) Reviewed date:04/02/2024 12:53:23 PM Interpretation: Performing Lab: Notes/Report: wbc 6.9 3.5 - 10 lym 28.1 15 - 50 mid 7.2 2 - 15 gran 64.7 35 - 80 rbc 4.90 3.5 - 5.5 hgb 15.2 11.5 - 16.5 hct 44.2 35 - 55 mcv 90.2 75 - 100 mch 31.0 25 - 35 mchc 34.4 31 - 38 plat 142 100 - 400 REASON FOR VISIT RLQ pain Medications Medication SIG (Take, Route, Fr equency, Duration) Notes Start Date End Date Status Multivitamin - 1 tab(s) orally once a day Active Synthroid 125 MCG 1 tablet in the morn ing on an empty stomach Orally Once a day; Duration: 90 days 08/16/2023 Active Ibuprofen 600 MG 1 tablet with food o r milk as needed Orally Three times a day, prn 04/02/2024 Active Vital Signs Blood pressure systolic 120 mm Hg 04/02/20 24 Blood pressure diastolic 62 mm Hg 024 Heart Rate 70 /min 04/02/2024 Height 71 in 04/02/2024 Weight 225.4 lbs 04/02/2024 BMI 31.43 kg/m2 04/02/2024 Encounters Encounter Location Date Provider Diagnosis [facility] [address] [place], [place] [id number] 04/02/2024 Jolynn Quick Right lower quadrant pain R10.31 and History of appendicitis Z87.19 Assessments Encounter Date Diagnosis (ICD Code) Assessment Notes Treatment Notes Treatment Clinical Notes Section Notes 04/02/2024 Right lower quadrant pain (ICD-10 - R10.31) Patient has no pain today. WBC is normal and patient is afebrile. Will continue to monitor and keep appt at [facility]. 04/02/2024 History of appendicitis (ICD-10 - Z87.19) Plan Of Treatment Medication Medication Name Sig Start Date Stop Date Notes Ibuprofen 600 MG 1 tablet with food o r milk as needed Orally Three times a day, prn 04/02/2024 Treatment Notes Assessment Notes Right lower quadrant pain Patient has no pain today. WBC is normal and patient is afebrile. Will continue to monitor and keep appt at [facility]. Next Appt Details Follow Up: prn, Reason: Provider Name:Jloynn herrera, 01/20/2025 01:45:00 PM, [address] [facility], [address], [place], [id number], Progress Notes * VLADIMIR GALARZAOB:1990 (34 yo M)Acc No.[id number]:04/02/2024 Progress Notes Patient: COLBY ISLAS Provider: JOHN Hernandez :1990 A ge:34 Y S ex:Male Date:04/02/2024 Address:[address] [place] [phone] Pcp:Luis Felipe Upton Subjective: * Chief Complaints: * 1 . RLQ pain. * HPI: P ain: Pt is here today for right lower quadrant pain. Pt sts he is here to talk about his ongoing appendicitis issues and pain and sts he needs his wbc checked. He has an appt with a different surgeon at [facility] for a second opinion the first week of April. He started having pain in the RLQ again yesterday but it is better today after taking some motrin. * ROS: C ARDIOLOGY: no C hest pain. n o S hortness of breath. ? D ERMATOLOGY: no R niall. n o H jyoti. U ROLOGY: no D ifficulty urinating. n o B lood in urine. * Medical History: H ypothyroidism, COVID 19 - 05/09/2020. * Surgical History: m ole removed . * Hospitalization/Major Diagno stic Procedure: H ER - passed out 04/25/15, [facility] ER-syncope episode 10/26, [facility] ER - broken bone in hand 11/2018. [...] empty stomach Orally Once a day , Medication List reviewed and reconciled with the patient * Allergies: N .K.D.A. Objective: * Vitals: W t:225.4, Temp:97.1, BP:120/62, HR:70, O2 Sat:99% on RA, Nurse:NARDA, Ht: 71, BMI:31.43. * Examination: G eneral Examination: General Appearance: N AD. C hest: n ormal shape and expansion. H eart: R SR. L ungs: c lear to auscultation. A bdomen: bowel sounds present, soft, nontender. Assessment: * Assessment: 1. R ight lower quadrant pain - R10.31 (Primary) 2 . H istory of appendicitis - Z87.19 Plan: * Treatment: Value Reference Range w bc 6.9 3.5 - 10 * l ym 28.1 15 - 50 * m id 7.2 2 - 15 * g ran 64.7 35 - 80 * r bc 4.90 3.5 - 5.5 * h gb 15.2 11.5 - 16.5 * h ct 44.2 35 - 55 * m cv 90.2 75 - 100 * m ch 31.0 25 - 35 * m chc 34.4 31 - 38 * p lat 142 100 - 400 * Mary Anne Arredondo 04/02/2024 10:2 9:35 AM > , Provider reviewed results while patient in office.Jolynn Quick 04/02/2024 12:53:21 PM > Notes: Patient has no pain today. WBC is normal and patient is afebrile. Will continue to monitor and keep appt at [facility].?? * Procedure Codes: 9 4760 [place], [address] CAPILLARY BLOOD DRAW, 37800 CBC WITH AUTO DIFF * Follow Up: p rn * Images: Billing Information: * Visit Code: 06648 Office Visit, Est Pt., Level 3. * Procedure Codes: [address] [place]. [address] CAPILLARY BLOOD DRAW. 03047 CBC WITH AUTO DIFF. * Electronic signature of JOHN Roberto on 01/20/2025 at 02:07 PM EDT Sign off status: Pending * Provider: JOHN Hernandez Date: 1 06/02/2023 Generated for Joi graves/Haley/eTransmitting on: 0 01/20/2025 02:07 PM EDT History and Physical Notes * HPI (History of Present Illness) Category Sub-Category Detail Notes Category Not es Pain Pt is here toda y for right lower quadrant pain. Pt sts he is here to talk about his ongoing appendicitis issues and pain and sts he needs his wbc checked. He has an appt with a different surgeon at [facility] for a second opinion the first week of April. He started having pain in the RLQ again yesterday but it is better today after taking some motrin. Examination Category Sub-Category Detail Notes Category Not es General Examination Heart: RSR Lungs: clear to auscultatio n Abdomen: bowel sounds present , soft, nontender General Appearance: NAD Chest: normal shape and exp ansion
--- OUTSIDE RECORDS SUMMARY | 2024-08-19 06:45 | XMS_ITS ---
Author Organization [facility] Address [address] [place] [id number] Care Team Providers Care Coffee Shop Manager Name Role Phone Luis Felipe Upton Primary Care Provider [phone] Jolynn Quick Unavailable [phone] Allergies No Known Allergies Results Component Value Reference Range Notes P-T4 Free (thyroxine) Reviewed date:08/21/2024 02:33:44 PM Interpretation:normal Performing Lab: Notes/Report: Test performed by [facility] [address] [place] [address] , [address], [place] [address] Taurus Urena MD, Rrt CLIA: [id number] Thyroxine Free (free T4) 1.31 0.86-1.76 ng/dL P-TSH Reviewed date:08/21/2024 02:33:44 PM Interpretation:7.96 Performing Lab: Notes/Report: Test performed by [facility] [address] [place] [address] , [facility] [address], [place] [address] Taurus Urena MD, Rrt CLIA: [id number] TSH 7.96 0.43-5.25 mU/L REASON FOR VISIT refills Medications Medication SIG (Take, Route, Fr equency, Duration) Notes Start Date End Date Status Synthroid 125 MCG 1 tablet in the morn ing on an empty stomach Orally Once a day; Duration: 30 days Active Multivitamin - 1 tab(s) orally once a day Active Ibuprofen 600 MG 1 tablet with food o r milk as needed Orally Three times a day, prn 04/02/2024 Not-Taking Problems Problem Type SNOMED Code ICD Code Onset Dates Problem Status W/U Status Risk Notes Problem Body mass index 30.00 to 34.99 ([id number] 107) BMI 31.0-31.9,a dult (Z68.31) Active confirmed Vital Signs Blood pressure systolic 126 mm Hg 08/20/19 25 Blood pressure diastolic 82 mm Hg 025 Heart Rate 52 /min 08/19/2024 Height 71 in 08/19/2024 Weight 226.0 lbs 08/19/2024 BMI 31.52 kg/m2 08/19/2024 Encounters Encounter Location Date Provider Diagnosis [facility] [address] [place] [id number] 08/19/2024 Jolynn Ynes Hypothyroidism (acqu ired) E03.9 and BMI 31.0-31.9,adult Z68.31 Assessments Encounter Date Diagnosis (ICD Code) Assessment Notes Treatment Notes Treatment Clinical Notes Section Notes 08/19/2024 Hypothyroidism (acquired) (ICD-10 - E03.9) 08/19/2024 BMI 31.0-31.9,adult (ICD-10 - Z68.31) Plan Of Treatment Next Appt Details Follow Up: via phone to repo rt test results, Reason: Provider Name:Jolynn Shaheen Callaway y, 01/20/2025 01:45:00 PM, [address], [address], [place], [phone], Progress Notes * VLADIMIR GALARZAOB:1990 (34 yo M)Acc No.[id number]:08/19/2024 Progress Notes Patient: COLBY ISLAS Provider: JOHN Hernandez :1990 A ge:34 Y S ex:Male Date:08/19/2024 Address:[address] [place] [address] [id number] Pcp:Luis Felipe Upton Subjective: * Chief Complaints: * 1 . Refills. * HPI: E ndocrinology: The pt is here today for a check-up on Hypothyroidism and refills. Pt states he is doing good and denies any new concerns today. Pt needs refills sent to [facility] in [place]. * ROS: D ERMATOLOGY: no R niall. n o H jyoti. G ASTROENTEROLOGY: no N ausea. n o V omiting. n o D iarrhea.? U ROLOGY: no D ifficulty urinating. n o B lood in urine. * Medical History: H ypothyroidism, COVID 19 - 05/09/2020. * Surgical History: m ole removed . * Hospitalization/Major Diagno stic Procedure: H ER - passed out 04/25/15, [facility] ER-syncope episode 10/26, [facility] ER - broken bone in hand 11/2018. * Family History: F ather: alive 66 yrs. M other: alive 63 yrs. 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 Objective: * Vitals: W t: 226.0, Temp: 97.8, BP: 126/82, HR: 52, Nurse: EMILY, Ht: 71, BMI:31.52. * Examination: G eneral Examination: General Appearance: N AD. N kirk: supple, no lymphadenopathy. C hest: n ormal shape and expansion. H eart: R SR. L ungs: c lear to auscultation. Assessment: * Assessment: 1. H ypothyroidism (acquired) - E03.9 (Primary) 2 . B IN 31.0-31.9,adult - Z68.31 Plan: * Treatment: Value Reference Range T hyroxine Free (free T4) 1.31 0.86-1.76 - ng/d L Kandy Alejandro 08/21/2024 02: 33:39 PM > see TE ?LAB: P-TSH (Collection Date & Time - 08/20/2024 08:06 AM)?7.96* Value Reference Range T SH 7.96 H 0.43-5.25 - mU/L * Kandy Lim 08/21/2024 02: 33:39 PM > see TE * Procedure Codes: 3 074F SYST BP LT 130 MM HG, 3079F DIAST BP 80-89 MM HG * Follow Up: v ia phone to report test results * Images: Billing Information: * Visit Code: 07855 Office Visit, Est Pt., Level 3. * Procedure Codes: 3074F SYST BP LT 130 MM HG. 3079F DIAST BP 80-89 MM HG. * Electronic signature of JOHN Roberto on 01/20/2025 at 02:07 PM EDT Sign off status: Pending * Provider: JOHN Hernandez Date: 0 08/19/2024 Generated for Caitlyni star/Haley/eTransmitting on: 0 01/20/2025 02:07 PM EDT History and Physical Notes * Examination Category Sub-Category Detail Notes Category Not es General Examination Heart: RSR Lungs: clear to auscultatio n General Appearance: NAD Neck: supple, no lymphaden opathy Chest: normal shape and exp ansion
--- OUTSIDE RECORDS SUMMARY | 2024-10-21 10:30 | XMS_ITS ---
[facility] Address [address] [place] [id number] Care Team Providers Care Benefits Specialist Name Role Phone Luis Felipe Upton Primary Care Provider Jolynn Quick Unavailable [phone] Allergies No Known Allergies Results Component Value Reference Range Notes P-T4 Free (thyroxine) Reviewed date:10/23/2024 04:08:15 PM Interpretation:Normal Performing Lab: Notes/Report: Test performed by [facility] [address] [place] [address] , [address], [place] [address] Taurus Urena MD, Freight Solicitor CLIA: [id number] Thyroxine Free (free T4) 1.45 0.86-1.76 ng/dL P-TSH Reviewed date:10/23/2024 04:08:23 PM Interpretation:Normal Performing Lab: Notes/Report: Test performed by [facility] [address] [place] [address] , [address], [place] [address] Taurus Urena MD, Freight Solicitor CLIA: [id number] TSH 4.56 0.43-5.25 mU/L Reason For Referral Diagnosis 1 Acute pain of right shoulder (M25.511) [facility] Referring Provider First Name Jolynn Referring Provider Last Name Ynes Referring Provider Speciality Physician Skin Washer Referred Provider Physical Therapy, . Referred Provider Specialty Physical The rapist General Notes Jolynn Quick 03/2025 02:53:44 PM > Pt would like to go to [facility] PT, [place] 10/21/2024 02:55:45 PM > faxed to [facility] PT Referral Priority Routine REASON FOR VISIT Check Up and Labs Medications Medication SIG (Take, Route, Frequency, Duration) Notes Start Date End Date Status Levothyroxine Sodium 137 MCG 1 tablet in the morning on an empty stomach Orally Once a day; Duration: 30 day(s) 08/21/2024 Active Ibuprofen 600 MG 1 tablet with food o r milk as needed Orally Three times a day, prn 04/02/2024 Active Multivitamin - 1 tab(s) orally once a day Active Vital Signs Blood pressure systolic 120 mm Hg 10/22/19 25 Blood pressure diastolic 80 mm Hg 025 Heart Rate 72 /min 10/21/2024 Height 71 in 10/21/2024 Weight 225.8 lbs 10/21/2024 BMI 31.49 kg/m2 10/21/2024 Encounters Encounter Location Date Provider Diagnosis [facility] [address] [facility] [address] [facility] [address] [place] [id number] 10/21/2024 Jolynn Quick Acute pain of right shoulder M25.511 and Hypothyroidism (acquired) E03.9 Assessments Encounter Date Diagnosis (ICD Code) Assessment Notes Treatment Notes Treatment Clinical Notes Section Notes 10/21/2024 Acute pain of right shoulder (ICD-10 - M25.511) 10/21/2024 Hypothyroidism (acquired) (ICD-10 - E03.9) Plan Of Treatment Medication Medication Name Sig Start Date Stop Date Notes Ibuprofen 600 MG 1 tablet with food o r milk as needed Orally Three times a day, prn 04/02/2024 Referrals Referral Date Details 10/21/2024 10/21/2024, . Physic al Therapy Next Appt Details Follow Up: via phone to repo rt test results, Reason: Provider Name:Jolynn herrera, 01/20/2025 01:45:00 PM, [address] [facility], [address], [place], [id number], Progress Notes * VLADIMIR GALARZAOB:1990 (34 yo M)Acc No.[id number]:10/21/2024 Progress Notes Patient: Mabel YOUSIF COLBY Provider: JOHN Hernandez :1990 A ge:34 Y S ex:Male Date:10/21/2024 Address:[address] [place] [address], [id number] Pcp:Luis Felipe Upton Subjective: * Chief Complaints: * 1 . Check Up and Labs. * HPI: E ndocrinology: The pt is here for a check-up on Hypothyroidism. Pt states he is having pain in the right shoulder and would like to get a referral for PT. Pt states he is needing refills sent to [facility] in [place]. * ROS: D ERMATOLOGY: no R niall. n o H jyoti. G ASTROENTEROLOGY: no N ausea. n o V omiting. n o D iarrhea.? U ROLOGY: no D ifficulty urinating. n o B lood in urine. * Medical History: H ypothyroidism, COVID 19 - 05/09/2020. * Surgical History: m ole removed . * Hospitalization/Major Diagno stic Procedure: H ER - passed out 04/25/15, [facility] ER-syncope episode 10/26, [facility] ER - broken bone in hand 11/2018. [...] tab(s) orally once a day , Taking Levothyroxine Sodium 137 MCG Tablet 1 tablet in the morning on an empty stomach Orally Once a day , Not-Taking Ibuprofen 600 MG Tablet 1 tablet with food or milk as needed Orally Three times a day, prn , Medication List reviewed and reconciled with the patient * Allergies: N .K.D.A. Objective: * Vitals: W t: 225.8, Temp: 98.3, BP: 120/80, HR: 72, Nurse: EMILY, Ht: 71, BMI:31.49. * Examination: G eneral Examination: General Appearance: N AD. H EENT: u nremarkable.?Oral cavity: n o lesions, mucosa moist and WNL, no erythema. N kirk: s upple, no lymphadenopathy. C hest: n ormal shape and expansion. H eart: R SR. L ungs: c lear to auscultation. N eurologic Exam: I ntact, gait normal. S kin: n ormal, no rash.?Peripheral pulses: n ormal (2+) bilaterally. E xtremities: n o leg edema. ? S houlder / Upper arm: Shoulder: r ight. I nspection: n o swelling or redness. P alpation: t enderness on subdeltoid bursa, tenderness on bicipital tendon, some posterior tenderness. R kaylee of motion: n ormal flexion, extension & rotation. S trength:?normal. Assessment: * Assessment: 1. A cute pain of right shoulder - M25.511 (Primary) 2 . H ypothyroidism (acquired) - E03.9 Plan: * Treatment: 2. H ypothyroidism (acquired) L AB: P-T4 Free (thyroxine) (Collection Date & Time - 10/21/2024 01:59 PM) N ormal Value Reference Range T hyroxine Free (free T4) 1.45 0.86-1.76 - ng/d L * Jolynn Quick 10/21/2024 0 2:57:22 PM EDT >room [address], [place] 10/23/2024 04:08:12 PM EDT >pt informed ?LAB: P-TSH (Collection Date & Time - 10/21/2024 01:59 PM)?Normal* Value Reference Range T SH 4.56 0.43-5.25 - mU/L * Jolynn Quick 10/21/2024 0 2:57:22 PM EDT >room [address], [place] 10/23/2024 04:08:20 PM EDT >pt informed * Procedure Codes: 1 036F TOBACCO NON-USER, G8783 BP SCR PRFRM RCMDD DEFIND SCR INTVL, G8752 MOST RECENT SYSTOLIC BP < 140MM HG, G8754 MOST RECENT DIASTOLIC BP < 90MM HG * Follow Up: v ia phone to report test results * Images: Billing Information: * Visit Code: 52754 Office Visit, Est Pt., Level 4. * Procedure Codes: 1036F TOBACCO NON-USER. G8783 BP SCR PRFRM RCMDD DEFIND SCR INTVL. G8752 MOST RECENT SYSTOLIC BP < 140MM HG. G8754 MOST RECENT DIASTOLIC BP < 90MM HG. * Electronic signature of JOHN Roberto on 01/20/2025 at 02:07 PM EDT Sign off status: Pending * Provider: JOHN Hernandez Date: 0 10/21/2024 Generated for Caitlyni ng/Faxing/eTransmitting on: 0 01/20/2025 02:07 PM EDT History and Physical Notes * Examination Category Sub-Category Detail Notes Category Not es General Examination HEENT: unremarkable Heart: RSR Lungs: clear to auscultatio n Extremities: no leg edema General Appearance: NAD Skin: normal, no rash Neurologic Exam: Intact, gait normal Neck: supple, no lymphaden opathy Oral cavity: no lesions, mucosa m oist and WNL, no erythema Peripheral pulses: normal (2+) bilatera lly Chest: normal shape and exp ansion Shoulder / Upper arm Range of motion: normal flexion, extension & rotation Strength: normal Shoulder: right Inspection: no swelling or redne ss Palpation: tenderness on subdel toid bursa, tenderness on bicipital tendon, some posterior tenderness Consultation Request Notes Referral Date Referring Provider Referred Provider Not es 10/21/2024 Jolynn Quick Physical Therapy, .
--- OUTSIDE RECORDS SUMMARY | 2025-01-20 14:07 | XMS_ITS | Clinical Summary ---
Author Organization [facility] Address [address] [place] [address] Care Team Providers Care Traffic Manager Name Role Phone Ye Durand MD Primary Care Provider [phone] Allergies No known active allergies Medications levothyroxine (Synthroid, Levoxyl) 125 MCG tablet Take 1 tablet (125 mcg) by mouth 1 (one) time each day before breakfast. Active acetaminophen (Tylenol) 500 MG tablet Take 2 tablets (1,000 mg) by mouth every 6 (six) hours. 100 tablet 4 Active Additional Information Patient not taking.Reported on 02/03/2024 gabapentin (Neurontin) 300 MG capsule Take 1 capsule (300 mg) by mouth 3 (three) times a day. 30 capsule 4 Active Additional Information Patient not taking.Reported on 02/03/2024 ibuprofen 600 MG tablet Take 1 tablet (600 mg) by mouth every 6 (six) hours. 30 tablet 4 Active Additional Information Patient not taking.Reported on 02/03/2024 lidocaine (Lidoderm) 5 % patch Apply 1 patch topically 1 (one) time each day at the same time over 12 hours. Remove & discard patch within 12 hours or as directed by MD. 7 patch 4 Active Additional Information Patient not taking.Reported on 02/03/2024 methocarbamol (Robaxin) 750 MG tablet Take 1 tablet (750 mg) by mouth 4 (four) times a day. 30 tablet 4 Active Additional Information Patient not taking.Reported on 02/03/2024 oxyCODONE (Roxicodone) 5 MG immediate release tablet Take 2 tablets (10 mg) by mouth every 4 (four) hours if needed for moderate pain. 30 tablet 4 Active Additional Information Patient not taking.Reported on 02/03/2024 naloxone (Narcan) 4 mg/0.1 mL nasal spray 1. Give 1 spray in nostril for no/slow breathing or cannot wake after opioid use 2. Call 911 3. Repeat in other nostril if symptoms continue 1 each Active Additional Information Patient not taking.Reported on 02/03/2024 sodium chloride 0.9 % flush 10 mL by Intracatheter route every 12 (twelve) hours. 280 mL Active Additional Information Patient not taking.Reported on 02/25/2024 senna-docusate (Oxana-Colace) 8.6-50 MG tablet Take 1 tablet by mouth 1 (one) time each day. 30 tablet Active Additional Information Patient not taking.Reported on 02/03/2024 Active Problems Problem Noted Date Diagnosed Date Appendicitis 02/29/2024 BMI 29.0-29.9,adult 02/25/2024 Perforated appendicitis 01/16/2024 Overview (01/18/2024): IR drain placed 01/16 Family History Medical History Relation Name Comments Diabetes type II Father Diabetes type II Mother Relation Name Status Comments Father Mother Social History Tobacco Use Types Packs/Day Years Used Date Smoking Tobacco: Never Smokeless Tobacco: Never Tobacco Cessation:Counseling Given: Not Answered Alcohol Use Standard Drinks/Week Comments Never 0 (1 standard drink = 0.6 oz pur e alcohol) CAGE ASSESSMENT Answer Date Recorded Cage unable to access Not on file 01/17/2024 Cage max number of drinks Not on file 2023 Cage Beverages a week Not on file 01/17/2024 Have you ever felt you should CUT down on your d rinking? 0 01/17/2024 Have you been ANNOYED by people criticizing your drinking? 0 01/17/2024 Have you felt GUILTY about your drinking? 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 0 01/17/2024 CAGE Questionnaire Score 0 024 Sex and Gender Information Value Date Recorded Sex Assigned at Male 01/17/2024 2:40 PM EDT Legal Sex Male 7:50 PM EDT Gender Identity Male 01/17/2024 2:40 PM EDT Sexual Orientation Straight 01/17/2024 2: 40 PM EDT Last Filed Vital Signs Vital Sign Reading Time Taken Comments Blood Pressure 141/84 02/25/2024 1:03 PM EDT Pulse 81 02/25/2024 12:58 PM EDT Temperature 36.3 C (97.4 F) 02/25/2024 12:58 PM EDT Respiratory Rate 18 01/27/2024 11:41 AM EDT Oxygen Saturation 98% 02/25/2024 12:58 PM EDT Inhaled Oxygen Concentration - - Weight 101 kg (222 lb 6.4 oz) 02/25/2024 12:58 P M EDT Height 185.4 cm (6' 1 ) 02/25/2024 12:58 PM EDT Body Mass Index 29.34 02/25/2024 12:58 PM EDT Plan of Treatment Health Maintenance Due Date Last Done Comments UKY-Depression Screening 1992 UKY-Infant/Child/Adol SDOH Screenings 1992 [id number] Vaccine (#1) 1997 UKY-Varicella Vaccines (1 of 2 - 13+ 2-dose series) 2005 UKY- SDOH Screenings 2010 UKY-Adult SDOH Screenings 2010 UKY-DTaP,Tdap,and Td Vaccines (1 - Tdap) 2011 HPV Vaccines (1 - 3-dose SCDM series) 2019 UKY-Influenza Vaccine (#1) 2025 UKY-Zoster Vaccines (1 of 2) 2042 UKY-Hepatitis B Vaccines Completed 999, 03/07/1998, 02/01/1998 UKY-HIV Screening Completed 01/16/2024 UKY-Hepatitis C Screening Completed 01/16/2024 UKY-Obesity Intervention Completed 024, 02/03/2024, 01/27/2024, Additional history exists UKY-HIB Vaccines Aged Out No longer e ligible based on patient's age to complete this topic UKY-Hepatitis A Vaccines Aged Out No longer eligible based on patient's age to complete this topic UKY-IPV Vaccines Aged Out No longer e ligible based on patient's age to complete this topic UKY-Pneumococcal Vaccine: Pediatrics (0 to 5 Years) and At-Risk Patients (6 to 49 Years) Aged Out No longer eligible based on patient's age to complete this topic UKY-Rotavirus Vaccines Aged Out No lo nger eligible based on patient's age to complete this topic Procedures Procedure Name Priority Date/Time Associated Diagnosis Comments HEPATITIS C ANTIBODY - ED W/REFLEX TO HCV QUANT PCR STAT 01/16/2024 8:35 PM EDT ED HIV 1/2 ANTIBODY/ANTIGEN SCREEN WITH REFLEX TO HIV I/II DIFFERENTIATION STAT 01/16/2024 8:35 PM EDT from Last 3 Months or Most Recently Relevant to Health Maintenance Results * ED HIV 1/2 Antibody/Antigen Screen w/Reflex to HIV 1/2 Differentiation (01/16/2024 8:35 PM EDT) HIV 1 & 2 Antibody/Antigen Screen Non Reactive Non Reactive 01/16/2024 10:26 PM EDT [facility] Comment:Screening for HIV 1 & 2 antibodies, and P24 antigen is NONREACTIVE. No confirmatory testing is required. Blood Venous blood specimen / Unknown Venipuncture / Unknown 01/16/2024 8:35 PM EDT 01/16/2024 8:44 PM EDT Jose Doran MD LAB BLOOD ORDERABLES Final Result [facility] [address] [place] [address] * Hepatitis C Antibody - ED (01/16/2024 8:35 PM EDT) Hepatitis C Antibody Negative Negative 01/16/2024 10:26 PM EDT [facility] Blood Venous blood specimen / Unknown Venipuncture / Unknown 01/16/2024 8:35 PM EDT 01/16/2024 8:44 PM EDT us Jose Doran MD LAB BLOOD ORDERABLES Final Result [facility] [address] [place] [address] from Last 3 Months or Most Recently Relevant to Health Maintenance Insurance [employer] Advance Directives * Full Code (Latest Code Status on File) Date Activated Date Inactivated Comments 01/16/2024 10:25 PM 01/19/2024 5:42 PM Question Answer Comments Patient has decision-making capacity? Yes Care Teams Traffic Manager Relationship Specialty Start Date End Date Ye Durand MD [address] [place] [address] PCP - General 09/23/20
--- NOTE | 2025-01-20 14:08 | XR_ITS ---
FINAL REPORT CLINICAL HISTORY: SHOULDER PAIN COMPARISON: None FINDINGS: 3 views of the right shoulder were obtained. There is no fracture or dislocation. The joint space is preserved. Soft tissues are unremarkable. IMPRESSION: No acute osseous abnormality of the right shoulder. Reviewed, Interpreted and Dictated by Germaine Rodgers MD Transcribed by Flory Pak Authenticated and [facility]
--- OUTSIDE RECORDS SUMMARY | 2025-01-20 14:08 | XMS_ITS | Clinical Summary ---
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 Active ondansetron ODT (ZOFRAN-ODT) 4 MG disintegrating tablet Take 1 tablet by mouth Every 6 (Six) Hours As Needed for Nausea or Vomiting. 60 tablet 1 5 Active oxyCODONE-acetamino phen (PERCOCET) 5-325 MG per tabletIndications:P erforated appendicitis Take 1 tablet by mouth Every 4 (Four) Hours As Needed for Moderate Pain. 11 tablet 5 Active docusate sodium (COLACE) 100 MG capsule Take 1 capsule by mouth 2 (Two) Times a Day. 60 capsule 5 Active Active Problems Problem Noted Date Diagnosed Date Perforated appendicitis 01/16/2024 Overview (06/23/2024): IR drain placed 01/16 Social History Tobacco Use Types Packs/Day Years Used Date Smoking Tobacco: Never Smokeless Tobacco: Never Tobacco Cessation:Counseling Given: Not Answered Alcohol Use Standard Drinks/Week Comments Never 0 (1 standard drink = 0.6 oz pur e alcohol) [facility] Utilities Answer Date Recorded In the past 12 months has e electric, gas, oil, or water company threatened to shut off services in your home? No 06/24/2024 AUDIT-C Answer Date Recorded Q1: How often do you have a drink containing alcohol? Never 06/23/2024 Q2: How many drinks containi ng alcohol do you have on a typical day when you are drinking? Patient does not drink Q3: How often do you have si x or more drinks on one occasion? Never 06/23/2024 Overall Financial Resource Strain (CARDIA) Answe r Date Recorded How hard is it for you to pa y for the very basics like food, housing, medical care, and heating? Not hard at all 06/24/2024 [facility] - Occupational Stress Questionnaire Answer Date Recorded Do you feel stress - tense, restless, nervous, or anxious, or unable to sleep at night because your mind is troubled all the time - these days? Not at all 06/24/2024 Exercise Vital Sign Answer Date Recorde d On average, how many days pe r week do you engage in moderate to strenuous exercise (like a brisk walk)? 6 days 06/24/2024 On average, how many minutes do you engage in exercise at this level? 120 min 06/24/2024 Hunger Vital Sign Answer Date Recorded Within the past 12 months, y ou worried that your food would run out before you got the money to buy more. Never true 06/24/19 25 Within the past 12 months, t he food you bought just didn't last and you didn't have money to get more. Never true 06/24/2024 PRAPARE - Transportation Answer Date Re corded In the past 12 months, has l ack of transportation kept you from medical appointments or from getting medications? No 06/13 In the past 12 months, has l ack of transportation kept you from meetings, work, or from getting things needed for daily living? No 06/24/2024 Abuse Screen Answer Date Recorded Feels Unsafe at Home or Work/School no 06/23/2024 Feels Threatened by Someone no 06/13 Does Anyone Try to Keep You From Having Contact with Others or Doing Things Outside Your Home? no 06/23/2024 Physical Signs of Abuse Present no 06/23/2024 Housing Stability Answer Date Recorded Current Living Arrangements home 06/13 Potentially Unsafe Housing Conditions none 06/24/2024 Family and Community Support Answer Juan Diego e Recorded If for any reason you need h elp with day-to-day activities such as bathing, preparing meals, shopping, managing finances, etc., do you get the help you need? I get all the help I need 06/24/2024 How often do you feel lonely or isolated from those around you? Never 06/24/2024 Employment Answer Date Recorded Do you want help finding or keeping work or a david b? Patient declined 06/24/2024 Disabilities Answer Date Recorded Difficulty Concentrating, Remembering or Making Decisions no 06/24/2024 Difficulty Managing Errands Independently no 06/24/2024 Education Answer Date Recorded Do you want help with school or training? For example, starting or completing job training or getting a high school diploma, GED or equivalent Patient declined 06/24/2024 Preferred Language Wolof 06/24/2024 PHQ-2 Answer Date Recorded Patient Health Questionnaire-2 Score 0 06/24/2024 Sex and Gender Information Value Date Recorded Sex Assigned at Not on file Legal Sex Male 10:26 AM EST Gender Identity Not on file Sexual Orientation Not on file Last Filed Vital Signs Vital Sign Reading Time Taken Comments Blood Pressure 134/78 06/26/2024 7:35 AM EST Pulse 66 06/26/2024 7:35 AM EST Temperature 37 C (98.6 F) 06/26/2024 7:35 AM EST Respiratory Rate 16 06/26/2024 7:35 AM EST Oxygen Saturation 99% 06/26/2024 7:35 AM EST Inhaled Oxygen Concentration - - Weight 99.8 kg (220 lb) 06/23/2024 8:41 AM EST Height 185.4 cm (6' 1 ) 06/23/2024 8:41 AM EST Body Mass Index 29.03 06/23/2024 8:41 AM EST Plan of Treatment Health Maintenance Due Date Last Done Comments TDAP/TD VACCINES (1 - Tdap) 2011 ANNUAL PHYSICAL 06/15/2024 COVID-19 Vaccine (2023-2 5 season) 2025 INFLUENZA VACCINE 02/10/2025 HEPATITIS C SCREENING Completed 01/16/2024 Pneumococcal Vaccine 0-49 Aged Out No longer eligible based on patient's age to complete this topic Medical Devices Implanted Type Area Supply Officer Device Identifier Shelf Expiration Date Model / Serial / Lot Clipapplr M/ Endo Ligaclip Rot 10mm /Xavier - [id number] Implanted:Qty : 1 on 06/23/2024 by Johnnie Morton MD at [facility] Implant N/A: Abdomen [employer] DIV OF J AND J 04/11/2029 [id number] / / [id number] Reload Stplr [place] Flex Gst Stnd 60 Wht - [id number] Implanted:Qty : 1 on 06/23/2024 by Johnnie Morton MD at [facility] Implant N/A: Abdomen [employer] OF J AND J 06/12/2026 [id number] / / [id number] Reload Stplr [place] Flex Gst Stnd 60 Wht - [id number] Implanted:Qty : 1 on 06/23/2024 by Johnnie Morton MD at [facility] Implant N/A: Abdomen [employer] DIV OF AND J 08/10/2026 [id number] / / [id number] Stplr Lnr Cut Prox 75mm Keith Tlc75 - [id number] Implanted:Qty : 1 on 06/23/2024 by Johnnie Morton MD at [facility] Implant N/A: Abdomen [employer] DIV OF AND J 02/09/2029 [id number] / / [id number] Stplr Tiss [id number] Std [id number] Strl 1p/U - [id number] Implanted:Qty : 1 on 06/23/2024 by Johnnie Morton MD at [facility] Implant N/A: Abdomen [employer] DIV OF AND J 02/09/2027 [id number] / / [id number] Reload Stplr Lnr Cut Prox 75mm Keith Tcr75 - [id number] Implanted:Qty : 1 on 06/23/2024 by Johnnie Morton MD at [facility] Implant N/A: Abdomen [employer] DIV OF J AND J 04/11/2029 TCR75 / / [id number] Reload Stplr Lnr Cut Prox 75mm Keith Tcr75 - [id number] Implanted:Qty : 1 on 06/23/2024 by Johnnie Morton MD at [facility] Implant N/A: Abdomen [employer] DIV OF J AND J 12/10/2028 TCR75 / / [id number] Stplr Lnr Cut 60mm Keith Reg Tx60b - [id number] Implanted:Qty : 1 on 06/23/2024 by Johnnie Morton MD at [facility] Implant N/A: Abdomen [employer] DIV OF J AND J 01/10/2029 [id number] / / [id number] Insurance [facility] [facility] [employer] Advance Directives * CPR (Attempt to Resuscitate) (Latest Code Status on File) Date Activated Date Inactivated Comments 06/23/2024 4:43 PM 06/26/2024 12:13 PM Question Answer Comments Code Status (Patient has no pulse and is not breathing): CPR (Attempt to Resuscitate) Medical Interventions (Patie nt has pulse or is breathing): Full Support Level Of Support Discussed With: Patient Care Teams Mechanical Maintenance Engineer Relationship Specialty Start Date End Date Provider, [place] [address] PCP - General 05/29/24
== END 2025-01-20 23:59 | disposition home or self-care (01) ==
LOC: RAD 14:05
PROVIDERS: PCP Physician Assistant; Visit Provider Physician Assistant
DX: M25.511 Pain in right shoulder (principal)
CPT/HCPCS: 73030

== ENCOUNTER 2025-02-02 11:00 | Outpatient (RCR) | payer BC, SELFPAY ==
--- NOTE | 2025-02-02 12:03 | HMH.RHREAS ---
Rehab Reassessment Rehab OP Re-assessment Start: 01/13/25 11:13 Freq: Status: Active Protocol: Document 02/02/25 10:59 FADISean (Rec: 02/02/25 12:03 WATSON [id number]) E-signed By KRISTEN GillDASH Activities Please rate your ability to do the following activities in the last week by selecting the number below the appropriate response. 1. Open a tight or No difficulty new jar. 2. 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 g., wash cardona, floors). 3. Carry a shopping No difficulty bag or briefcase. 4. Wash your back. Mild difficulty 5. Use a knife to No difficulty cut food. 6. Recreational Moderate difficulty activities in which you take some force or impact through your arm, shoulder, or hand (e.g., golf, hammering, tennis, etc.). 7. During the past Not at all week, to what extent has your arm, shoulder or hand problem interfered with your normal social activities with family, friends , neighbors or groups? 8. During the past Slightly limited week, were you limited in your work or other regular daily activites as a result of your arm, shoulder or hand problem? 9. Arm, shoulder or Moderate hand pain. 10. Tingling (pins None and needles) in your arm, shoulder or hand. 11. During the past No difficulty week, how much difficulty have you had sleeping because of the pain in your arm, shoulder or hand? Quick DASH 17 Rehab Re-assessment Subjective Subjective Pt reports continued R anterior and lateral shoulder pain rated 6-7/10 at worst on VAS. Pt reports pain continues to be aggravated by shoulder rotation and chest press. Pt denies pain at rest. Pt reports he flared up his shoulder last week with unknown cause so he rested all week from chest and shoulder exercises at work which helped return his symptoms to baseline. Pt reports he saw ortho on 01/25/25 and is scheduled to have a MRI with arthrogram this Saturday to assess the labrum and rotator cuff. Pt states he does not yet have a follow-up appointment scheduled with ortho to discuss the results. Objective Objective Notes Observation: mild scapular winging noted at rest and with overhead elevation Palpation: 1/4 TTP of long head of bicep tt, pectoralis major insertion, subacromial space R shoulder AROM: abduction 175, flexion 175, ER 70, IR 80 R shoulder MMT: flex 5/5 (p!), abd 5/5, ext 4+/5, IR 5/ 5, ER 4+/5 (p!) Scap strength: 4/5 grossly Special tests: + empty can Assessment Assessment Notes Pt has attended 10 PT treatment sessions consisting of aerobic exercise, scapular strengthening, UE stretching , postural re-education, manual therapy, dry needling, modalities and HEP with good tolerance. 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 Pt demonstrated no significant changes in objective or subjective outcome measure this date compared to the previous reassessment. Pt recently had an appointment with an orthopedic nurse and is scheduled to have a R shoulder MRI on 02/05/25. Overall, the pt would continue to benefit from skilled PT to further improve subjective report of pain, scapular strength, scapular positioning, and functional /occupational activity tolerance while awaiting MRI results and further orthopedic recommendations. PT Patient Goals PT Short Term 3 weeks: 3/4 Patient Goals 1. Demonstrate improved scapulohumeral rhythm with forward flexion -MET 2. Improve QuickDASH score -MET 3. Improve pain at worst to 5/10 to improve overall QOL - NOT MET 4. Verbalize compliance with HEP. 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 0-1/4 TTP of R shoulder complex -MET 2. Improve R shoulder AROM WNL -MET 3. Improve R shoulder/scapular strength 5/5 grossly to assist with occupation -NOT MET 4. Lift overhead with pain 3/10 or less to assist with occupational/recreational activities -NOT MET 5. Improve QuickDASH activities score to 17 or less, work to 10 or less -PARTIALLY MET 6. Improve pain at worst to 3/10 to improve overall QOL -NOT MET Plan Plan Continue initial PT POC while awaiting MRI results and ortho recommendations. Frequency of Therapy 2x/week Duration of Therapy 4 more weeks Therapeutic Exercise Yes Including Home Exercise Program Manual Therapy Yes Techniques Neuromuscular Re- Yes education Therapeutic Yes Activities to Return to Previous Functional/Work Level ADL/Self Care Yes Education Dry Needling Yes Thermal Modalities Yes Electrical Yes Stimulation Ultrasound/ Yes Phonophoresis Iontophoresis Yes Vasopneumatic Yes Compression Pump Massage Yes Eval/Re-Eval Yes Time and Billing Re-Eval Time 11 Re-Eval Billing 0 Units Charge for PT No reassessment? Charge for OT No reassessment? PHYSICIAN CERTIFICATION: I certify the specified therapy services for Wade Galarza are required, authorized, and reviewed every 30 days.
== END 2025-02-02 23:59 | disposition home or self-care (01) ==
LOC: PT 11:00
PROVIDERS: PCP Physician Assistant; Visit Provider Physician Assistant
DX: M25.511 Pain in right shoulder (principal)
CPT/HCPCS: 97110; 97140

== ENCOUNTER 2025-02-05 09:51 | Outpatient (CLI) | payer BC, SELFPAY ==
--- OUTSIDE RECORDS SUMMARY | 2024-02-14 09:00 | XMS_ITS ---
Author Organization [facility] Address [address] [place] [id number] Care Team Providers Care Tawer Name Role Phone Luis Felipe Upton Primary Care Provider Jolynn Quick Unavailable [phone] Allergies No Known Allergies Results Component Value Reference Range Notes CBC Fingerstick (in house) Reviewed date:02/14/2024 01:36:38 PM Interpretation: Performing Lab: Notes/Report: wbc 5.5 3.5 - 10 lym 47.3% 15 - 50 mid 5.5% 2 - 15 gran 47.2% 35 - 80 rbc 4.45 3.5 - 5.5 hgb 13.4 11.5 - 16.5 hct 39.9 35 - 55 mcv 89.6 75 - 100 mch 30.3 25 - 35 mchc 33.8 31 - 38 plat 152 100 - 400 REASON FOR VISIT Abdominal Pain RLQ Medications Medication SIG (Take, Route, Frequency, Duration) Notes Start Date End Date Status Acetaminophen 500 MG 1 capsule as needed Orally every 6 hrs Not-Taking Multivitamin - 1 tab(s) orally once a day Active Synthroid 125 MCG 1 tablet in the morn ing on an empty stomach Orally Once a day; Duration: 90 days 08/16/2023 Active Vital Signs Blood pressure systolic 130 mm Hg 02/14/20 24 Blood pressure diastolic 70 mm Hg 024 Heart Rate 62 /min 02/14/2024 Height 71 in 02/14/2024 Weight 225.9 lbs 02/14/2024 BMI 31.50 kg/m2 02/14/2024 Encounters Encounter Location Date Provider Diagnosis [facility] [address] [place] [phone] 02/14/2024 Jolynn Quick Ruptured appendix K35.32 Assessments Encounter Date Diagnosis (ICD Code) Assessment Notes Treatment Notes Treatment Clinical Notes Section Notes 02/14/2024 Ruptured appendix (ICD-10 - K35.32) Patient only has pain with certain movements. He has returned to more normal activities since the drain was pulled. CBC is normal so there does not appear to be any new infection. Will be careful lifting, pushing, and pulling and keep appt with surgeon in a week. Plan Of Treatment Treatment Notes Assessment Notes Ruptured appendix Patient only has ganesh n with certain movements. He has returned to more normal activities since the drain was pulled. CBC is normal so there does not appear to be any new infection. Will be careful lifting, pushing, and pulling and keep appt with surgeon in a week. Next Appt Details Follow Up: with surgeon, Renee son: Progress Notes * VLADIMIR GALARZAOB:1990 (34 yo M)Acc No.[id number]:02/14/2024 Progress Notes Patient: COLBY ISLAS Provider: JOHN Hernandez :1990 A ge:33 Y S ex:Male Date:02/14/2024 Address:[address] [place] [address] [place], [id number] Pcp:Luis Felipe Upton Subjective: * Chief Complaints: * 1 . Abdominal Pain RLQ. * HPI: G astroenterology: The patient is here for continued RUQ abdominal pain. Pt states the pain got some better but it started back up again yesterday. Pt rates the pain a 4/10 with certain movements. 33 year old male presents with c/o Abdominal Pain. Denies : Nausea. D enies : Vomiting. D enies : Diarrhea. D enies : Fever. * ROS: C ARDIOLOGY: no C hest pain. n o S hortness of breath. ? D ERMATOLOGY: no R niall. n o H jyoti. U ROLOGY: no D ifficulty urinating. n o B lood in urine. * Medical History: H ypothyroidism, COVID 19 - 05/09/2020. * Surgical History: m ole removed . * Hospitalization/Major Diagno stic Procedure: H ER - passed out 04/25/15, [facility] ER-syncope episode 10/26, [facility] ER - broken bone in hand 11/2018. * Family History: F ather: alive 65 yrs. M other: alive 62 yrs. * Social History: C URRENT TOBACCO USE S moking Status: Patient does NOT smoke. C affeine: no, frequency:. Home smoke detector use: yes. Marital Status: Single. Past smoking status: no. Alcohol: No. * Medications: T aking Multivitamin - Tablet 1 tab(s) orally once a day , Taking Synthroid 125 MCG Tablet 1 tablet in the morning on an empty stomach Orally Once a day , Not- Taking Acetaminophen 500 MG Capsule 1 capsule as needed Orally every 6 hrs , Medication List reviewed and reconciled with the patient * Allergies: N .K.D.A. Objective: * Vitals: W t:225.9, Temp:98.2, BP:130/70, HR:62, Nurse:EMILY, Ht: 71, BMI:31.50. * Examination: G astroenterology: General Appearance: p leasant, NAD. H eart sounds: r egular, normal S1 S2, no murmurs. L ungs: c lear, no rales or wheezes. A bdomen: BS present, soft, nontender, no guarding or rigidity. Assessment: * Assessment: 1. R uptured appendix - K35.32 (Primary) Plan: * Treatment: Value Reference Range w bc 5.5 3.5 - 10 * l ym 47.3% 15 - 50 * m id 5.5% 2 - 15 * g ran 47.2% 35 - 80 * r bc 4.45 3.5 - 5.5 * h gb 13.4 11.5 - 16.5 * h ct 39.9 35 - 55 * m cv 89.6 75 - 100 * m ch 30.3 25 - 35 * m chc 33.8 31 - 38 * p lat 152 100 - 400 * Luz Elena Lopes 02/14/2024 1:0 9:12 PM > , Provider reviewed results while patient in office.Jolynn Quick 02/14/2024 1:36:34 PM > Notes: Patient only has pain with certain movements. He has returned to more normal activities since the drain was pulled. CBC is normal so there does not appear to be any new infection. Will be careful lifting, pushing, and pulling and keep appt with surgeon in a week.?? * Procedure Codes: 3 6416 CAPILLARY BLOOD DRAW, 06848 CBC WITH AUTO DIFF * Follow Up: w [facility] surgeon * Images: Billing Information: * Visit Code: 21989 Office Visit, Est Pt., Level 3. * Procedure Codes: 66578 CAPILLARY BLOOD DRAW. 19739 CBC WITH AUTO DIFF. * Electronic signature of JOHN Roberto on 02/05/2025 at 09:53 AM EDT Sign off status: Pending * Provider: JOHN Hernandez Date: Generated for Caitlyni ng/Haley/eTransmitting on: 0 02/05/2025 09:53 AM EDT History and Physical Notes * HPI (History of Present Illness) Category Sub-Category Detail Notes Category Not es Gastroenterology Fever Vomiting Abdominal Pain Diarrhea Nausea Examination Category Sub-Category Detail Notes Category Not es Gastroenterology Heart sounds: regular, normal S1 S2, no murmurs Lungs: clear, no rales or w heezes Abdomen: BS present, soft, no ntender, no guarding or rigidity General Appearance: pleasant, NAD
--- OUTSIDE RECORDS SUMMARY | 2024-04-02 06:00 | XMS_ITS ---
[facility] [address] [place] [id number] Care Team Providers Care Brattice Builder Name Role Phone Luis Felipe Upton Primary Care Provider Jolynn Quick Unavailable [phone] Allergies No Known Allergies Results Component Value [...] 04/02/2024 Encounters Encounter Location Date Provider Diagnosis [facility] [address] [place] [id number] 04/02/2024 Jolynn Quick Right lower quadrant pain R10.31 and History of appendicitis Z87.19 Assessments Encounter Date Diagnosis (ICD Code) Assessment Notes Treatment Notes Treatment Clinical Notes Section Notes 04/02/2024 Right lower quadrant pain (ICD-10 - R10.31) Patient has no pain today. WBC is normal and patient is afebrile. Will continue to monitor and keep appt at [facility]. 04/02/2024 History of appendicitis (ICD-10 - Z87.19) [...] continue to monitor and keep appt at [facility]. Next Appt Details Follow Up: prn, Reason: Progress Notes * MIGUEL GALARZALAURAOB:1990 (34 yo M)Acc No.[id number]:04/02/2024 Progress Notes Patient: COLBY ISLAS Provider: JOHN Hernandez :1990 A ge:34 Y S ex:Male Date:04/02/2024 Address:[address] [place] [phone] Pcp:Luis Felipe Upton Subjective: * Chief Complaints: * 1 . RLQ pain. * HPI: P ain: Pt is here today for right lower quadrant pain. Pt sts he is here to talk about his ongoing appendicitis issues and pain and sts he needs his wbc checked. He has an appt with a different surgeon at [facility] for a second opinion the first [...] Procedure: H ER - passed out 04/25/15, [facility] ER-syncope episode 10/26, [facility] ER - broken bone in hand 11/2018. [...] Temp:97.1, BP:120/62, HR:70, O2 Sat:99% on RA, Nurse:[facility], Ht: 71, BMI:31.43. * Examination: G eneral [...] continue to monitor and keep appt at [facility].?? * Procedure Codes: 9 4760 [place], [address] CAPILLARY BLOOD DRAW, 30763 CBC WITH AUTO DIFF * Follow Up: p rn * Images: Billing Information: * Visit Code: 54779 Office Visit, Est Pt., Level 3. * Procedure Codes: [address] [place]. [address] CAPILLARY BLOOD DRAW. 26054 CBC WITH AUTO DIFF. * Electronic signature of JOHN Roberto on 02/05/2025 at 09:53 AM EDT Sign off status: Pending * Provider: JOHN Hernandez Date: 1 06/02/2023 Generated for Caitlyni ng/[place]/eTransmitting on: 0 02/05/2025 09:53 AM EDT History [...] an appt with a different surgeon at [facility] for a second opinion the first [...]
--- OUTSIDE RECORDS SUMMARY | 2024-08-19 06:45 | XMS_ITS ---
Author Organization [facility] Address [address] [place] [id number] Care Team Providers Care Machine Tool Technician Instructor Name Role Phone Luis Felipe Upton Primary Care Provider Jolynn Quick Unavailable [phone] Allergies No Known Allergies Results Component Value Reference Range Notes P-T4 Free (thyroxine) Reviewed date:08/21/2024 02:33:44 PM Interpretation:normal Performing Lab: Notes/Report: Test performed by [facility] [address] [place] [address] , [address], [place] [address] Taurus Urena MD, Ip Litigation Paralegal CLIA: [id number] Thyroxine Free (free T4) 1.31 0.86-1.76 ng/dL P-TSH Reviewed date:08/21/2024 02:33:44 PM Interpretation:7.96 Performing Lab: Notes/Report: Test performed by [facility] [address] [place] [address] , [facility] [address], [place] [address] Taurus Urena MD, Ip Litigation Paralegal CLIA: [id number] TSH 7.96 0.43-5.25 mU/L REASON FOR VISIT [...] Problem Body mass index 30.00 to 34.99 ([id number] 107) BMI 31.0-31.9,a dult (Z68.31) Active confirmed Vital Signs Blood pressure systolic 126 mm Hg 08/20/19 25 Blood pressure diastolic 82 mm Hg 025 Heart Rate 52 /min 08/19/2024 Height 71 in 08/19/2024 Weight 226.0 lbs 08/19/2024 BMI 31.52 kg/m2 08/19/2024 Encounters Encounter Location Date Provider Diagnosis [facility] [address] [place], [place] [id number] 08/19/2024 Jolynn Quick Hypothyroidism (acqu ired) E03.9 and BMI 31.0-31.9,adult Z68.31 Assessments Encounter Date Diagnosis (ICD Code) Assessment Notes Treatment Notes Treatment Clinical Notes Section Notes 08/19/2024 Hypothyroidism (acquired) (ICD-10 - E03.9) 08/19/2024 BMI 31.0-31.9,adult (ICD-10 - Z68.31) Plan Of Treatment Next Appt Details Follow Up: via phone to repo rt test results, Reason: Progress Notes * MIGUEL GALARZALAURAOB:1990 (34 yo M)Acc No.[id number]:08/19/2024 Progress Notes Patient: COLBY ISLAS Provider: JOHN Hernandez :1990 A ge:34 Y S ex:Male Date:08/19/2024 Address:[address] [place] [id number] Pcp:Luis Felipe Upton Subjective: * Chief Complaints: * 1 . Refills. * HPI: E ndocrinology: The pt is here today for a check-up on Hypothyroidism and refills. Pt states he is doing good and denies any new concerns today. [facility] [place] * ROS: D ERMATOLOGY: no R niall. n o H jyoti. G ASTROENTEROLOGY: no N ausea. n o V omiting. n o D iarrhea.? U ROLOGY: no D ifficulty urinating. n o B lood in urine. * Medical History: H ypothyroidism, COVID 19 - 05/09/2020. * Surgical History: m ole removed . * Hospitalization/Major Diagno stic Procedure: H ER - passed out 04/25/15, [facility] ER-syncope episode 10/26, [facility] ER - broken bone in hand [...] (acquired) - E03.9 (Primary) 2 . B VT 31.0-31.9,adult - Z68.31 Plan: * Treatment: Value [...] * Images: Billing Information: * Visit Code: 05589 Office Visit, Est Pt., Level 3. * Procedure Codes: 3074F SYST BP LT 130 MM HG. 3079F DIAST BP 80-89 MM HG. * Electronic signature of JOHN Roberto on 02/05/2025 at 09:53 AM EDT Sign off status: Pending * Provider: JOHN Hernandez Date: 0 08/19/2024 Generated for Joi graves/Haley/Christinaitting on: 0 02/05/2025 09:53 AM EDT History and Physical Notes * Examination Category Sub-Category Detail Notes Category Not es General Examination Heart: RSR Lungs: clear to auscultatio n General Appearance: NAD Neck: supple, no lymphaden opathy Chest: normal shape and exp ansion
--- OUTSIDE RECORDS SUMMARY | 2024-10-21 10:30 | XMS_ITS ---
Author Organization [facility] Address [address] [place] [id number] Care Team Providers Care Car Clerk Pullman Name Role Phone Luis Felipe Upton Primary Care Provider Jolynn Quick Unavailable [phone] Allergies No Known Allergies Results Component Value Reference Range Notes P-T4 Free (thyroxine) Reviewed date:10/23/2024 04:08:15 PM Interpretation:Normal Performing Lab: Notes/Report: Test performed by [facility] [address] [place] [address] , [address], [place] [address] Taurus Urena MD, Business Executive CLIA: [id number] Thyroxine Free (free T4) 1.45 0.86-1.76 ng/dL P-TSH Reviewed date:10/23/2024 04:08:23 PM Interpretation:Normal Performing Lab: Notes/Report: Test performed by [facility] [address] [place] [address] , [address], [place] [address] Taurus Urena MD, Business Executive CLIA: [id number] TSH 4.56 0.43-5.25 mU/L Reason For Referral Diagnosis 1 Acute pain of right shoulder (M25.511) [facility] Referring Provider First Name Jolynn Referring Provider Last Name Ynes Referring Provider Speciality Physician Jive Developer Referred Provider Physical Therapy, . Referred Provider Specialty Physical The rapist General Notes Jolynn Quick 03/2025 02:53:44 PM > Pt would like to go to [facility] PT, Kayli [place] 10/21/2024 02:55:45 PM > faxed to [facility] PT Referral Priority Routine REASON FOR VISIT [...] 10/21/2024 Encounters Encounter Location Date Provider Diagnosis [facility] [facility] [address] [place] [id number] 10/21/2024 Jolynn Quick Acute pain of right [...] rt test results, Reason: Progress Notes * VLADIMIR GALARZAOB:1990 (34 yo M)Acc No.[id number]:10/21/2024 Progress Notes Patient: COLBY ISLAS Provider: JOHN Hernandez :1990 A ge:34 Y S ex:Male Date:10/21/2024 Address:[address] [place] [address] [id number] Pcp:Luis Felipe Upton Subjective: * Chief Complaints: * 1 . Check Up and Labs. * HPI: E ndocrinology: The pt is here for a check-up on Hypothyroidism. Pt states he is having pain in the right shoulder and would like to get a referral for PT. Pt [facility] [place]. * ROS: D ERMATOLOGY: no R niall. n o H jyoti. G ASTROENTEROLOGY: no N ausea. n o V omiting. n o D iarrhea.? U ROLOGY: no D ifficulty urinating. n o B lood in urine. * Medical History: H ypothyroidism, COVID 19 - 05/09/2020. * Surgical History: m ole removed . * Hospitalization/Major Diagno stic Procedure: H ER - passed out 04/25/15, [facility] ER-syncope episode 10/26, [facility] ER - broken bone in hand [...] 10/21/2024 0 2:57:22 PM EDT >room 10[place], [place] 10/23/2024 04:08:12 PM EDT >pt informed ?LAB: P-TSH (Collection Date & Time - 10/21/2024 01:59 PM)?Normal* Value Reference Range T SH 4.56 0.43-5.25 - mU/L * Jolynn Quick 10/21/2024 0 2:57:22 PM EDT >room [address], [place] 10/23/2024 04:08:20 PM EDT >pt informed * Procedure Codes: 1 036F TOBACCO NON-USER, G8783 BP SCR PRFRM RCMDD DEFIND SCR INTVL, G8752 MOST RECENT SYSTOLIC BP < 140MM HG, G8754 MOST RECENT DIASTOLIC BP < 90MM HG * Follow Up: v ia phone to report test results * Images: Billing Information: * Visit Code: 13176 Office Visit, Est Pt., Level 4. * Procedure Codes: 1036F TOBACCO NON-USER. G8783 BP SCR PRFRM RCMDD DEFIND SCR INTVL. G8752 MOST RECENT SYSTOLIC BP < 140MM HG. G8754 MOST RECENT DIASTOLIC BP < 90MM HG. * Electronic signature of JOHN Roberto on 02/05/2025 at 09:53 AM EDT Sign off status: Pending * Provider: JOHN Hernandez Date: 0 10/21/2024 Generated for Caitlyni star/Haley/eTransmitting on: 0 02/05/2025 09:53 AM EDT History [...]
--- OUTSIDE RECORDS SUMMARY | 2025-01-20 09:45 | XMS_ITS ---
[facility] [address] [place] [id number] Care Team Providers Care Meter Installer Name Role Phone Alexsandra Luis Felipe Primary Care Provider Jolynn Quick Unavailable [phone] Allergies No Known Allergies Results Component Value Reference Range Notes X ray : Shoulder, right Reviewed date:01/25/2025 10:14:29 PM Interpretation:No Acute Abnormality Performing Lab: Notes/Report: No Acute Abnormality Reason For Referral Diagnosis 1 Acute pain of right shoulder (M25.511) [facility] Referring Provider First Name Jolynn Referring Provider Last Name Ynes Referring Provider Speciality Physician Residential Lawn Specialist Referred Provider Specialty Orthopedic S urgery General Notes Pt needs a referral to [facility] 01/21/2025 09:58:16 AM > appt 01/25/2025 at 10:15am; patient informed Referral Priority Routine REASON FOR VISIT discuss MRI and injection Medications Medication SIG (Take, Route, Frequency, Duration) Notes Start Date End Date Status Levothyroxine Sodium 137 MCG 1 tablet in the morning on an empty stomach Orally Once a day; Duration: 30 days 08/21/2024 Active Multivitamin - 1 tab(s) orally once a day Active Vital Signs Blood pressure systolic 120 mm Hg 01/21/20 25 Blood pressure diastolic 70 mm Hg 025 Heart Rate 55 /min 01/20/2025 Height 71 in 01/20/2025 Weight 226.2 lbs 01/20/2025 BMI 31.55 kg/m2 01/20/2025 Encounters Encounter Location Date Provider Diagnosis [facility] [address] [place] [id number] 01/20/2025 Jolynn Quick Acute pain of right shoulder M25.511 Assessments Encounter Date Diagnosis (ICD Code) Assessment Notes Treatment Notes Treatment Clinical Notes Section Notes 01/20/2025 Acute pain of right shoulder (ICD-10 - M25.511) Plan Of Treatment Referrals Referral Date Details 01/20/2025 01/20/2025 Next Appt Details Follow Up: via phone to repo rt test results, Reason: Progress Notes * VLADIMIR GALARZAOB:1990 (34 yo M)Acc No.[id number]:01/20/2025 Progress Notes Patient: COLBY ISLAS Provider: JOHN Hernandez :1990 A ge:34 Y S ex:Male Date:01/20/2025 Address:[address] [place] [address] [id number] Pcp:Luis Felipe Upton Subjective: * Chief Complaints: * 1 . discuss MRI and injection. * HPI: H PI: Patient is here today for d iscuss MRI and injection. Pt states want to see if he can get an order for MRI and see if he can get a referral to ortho for an injection. Pt states he has been going to PT and he still has pain in the right shoulder.. * ROS: D ERMATOLOGY: no R niall. n o H jyoti. G ASTROENTEROLOGY: no N ausea. n o V omiting. n o D iarrhea.? U ROLOGY: no D ifficulty urinating. n o B lood in urine. * Medical History: H ypothyroidism, COVID 19 - 05/09/2020. * Surgical History: m ole removed . * Hospitalization/Major Diagno stic Procedure: H ER - passed out 04/25/15, [facility] ER-syncope episode 10/26, [facility] ER - broken bone in hand 11/2018. [...] empty stomach Orally Once a day , Discontinued Ibuprofen 600 MG Tablet 1 tablet with food or milk as needed Orally Three times a day, prn , Medication List reviewed and reconciled with the patient * Allergies: N .K.D.A. Objective: * Vitals: W t: 226.2, Temp: 98.0, BP: 120/70, HR: 55, Nurse: pe, Ht: 71, BMI:31.55. * Examination: S houlder / Upper arm: Shoulder: r ight. I nspection: n o swelling or redness. P alpation: t enderness on subdeltoid bursa, some posterior tenderness. R kaylee of motion: r estricted rotations and abduction, positive empty can test. S trength: d iminished overall due to pain. Assessment: * Assessment: 1. A cute pain of right shoulder - M25.511 (Primary) Plan: * Treatment: ? Referral To:Orthopedic Surgery ?Reason: * Procedure Codes: 1 036F TOBACCO NON-USER, 3074F SYST BP LT 130 MM HG, 3078F DIAST BP < 80 MM HG * Follow Up: v ia phone to report test results * Images: Billing Information: * Visit Code: 65273 Office Visit, Est Pt., Level 3. * Procedure Codes: 1036F TOBACCO NON-USER. 3074F SYST BP LT 130 MM HG. 3078F DIAST BP < 80 MM HG. * Electronic signature of JOHN Roberto on 02/05/2025 at 09:53 AM EDT Sign off status: Pending * Provider: JOHN Hernandez Date: 01/20/2025 Generated for Joi graves/Haley/Sushant on: 0 02/05/2025 09:53 AM EDT History and Physical Notes * HPI (History of Present Illness) Category Sub-Category Detail Notes Category Not es HPI Patient is here today for discus s MRI and injection. Pt states want to see if he can get an order for MRI and see if he can get a referral to ortho for an injection. Pt states he has been going to PT and he still has pain in the right shoulder. Examination Category Sub-Category Detail Notes Category Not es Shoulder / Upper arm Range of motion: restricted rotations and abduction, positive empty can test Strength: diminished overall d ue to pain Shoulder: right Inspection: no swelling or redne ss Palpation: tenderness on subdel toid bursa, some posterior tenderness Consultation Request Notes Referral Date Referring Provider Referred Provider Not es 01/20/2025 Jolynn Quick ,
--- OUTSIDE RECORDS SUMMARY | 2025-02-05 09:53 | XMS_ITS | Clinical Summary ---
Author Organization [facility] Address [address] 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 No confirmatory testing is required. Blood Venous blood specimen / Unknown Venipuncture / Unknown 01/16/2024 8:35 PM EDT 01/16/2024 8:44 PM EDT Jose Doran MD LAB BLOOD ORDERABLES Final Result [facility] [address] [place] [address] * Hepatitis C Antibody - ED (01/16/2024 8:35 PM EDT) Hepatitis C Antibody Negative Negative 01/16/2024 10:26 PM EDT [facility] Blood Venous blood specimen / Unknown Venipuncture / Unknown 01/16/2024 8:35 PM EDT 01/16/2024 8:44 PM EDT us Jose Doran MD LAB BLOOD ORDERABLES Final Result [facility] [address] [place] [address] from Last 3 Months or Most Recently Relevant to Health Maintenance Insurance [employer] Advance Directives * Full Code (Latest Code Status on File) Date Activated Date Inactivated Comments 01/16/2024 10:25 PM 01/19/2024 5:42 PM Question Answer Comments Patient has decision-making capacity? Yes Care Teams Director [employer] Relationship Specialty Start Date End Date Ye Durand MD [address] [place] [address] PCP - General 09/23/20
--- OUTSIDE RECORDS SUMMARY | 2025-02-05 09:53 | XMS_ITS | Clinical Summary ---
Author Organization [facility] Address [address] [place] [address] Care Team Providers Care Digital Editor Name Role Phone Provider, No Known Primary [...] drink = 0.6 oz pur e alcohol) [facility] Utilities Answer Date Recorded [...] and heating? Not hard at all 06/24/2024 [facility] - Occupational Stress [...] or equivalent Patient declined 06/24/2024 Preferred Language Uzbek 06/24/2024 PHQ-2 Answer Date Recorded Patient Health [...] (1 - Tdap) 2011 ANNUAL PHYSICAL 06/15/2024 INFLUENZA VACCINE 12/11/2024 HEPATITIS C SCREENING Completed 01/16/2024 Pneumococcal Vaccine 0-49 Aged Out No longer eligible based on patient's age to complete this topic Medical Devices Implanted Type Area Owner Oral Surgeon Device Identifier Shelf Expiration Date Model / Serial / Lot Clipapplr M/ Endo Ligaclip Rot 10mm /Xavier - [id number] Implanted:Qty : 1 on 06/23/2024 by Johnnie Morton MD at [facility] Implant N/A: Abdomen [employer] DIV OF J AND J 04/11/2029 [id number] / / [id number] Reload Stplr Curtice Flex Gst Stnd 60 Wht - [id number] Implanted:Qty : 1 on 06/23/2024 by Johnnie Morton MD at [facility] Implant N/A: Abdomen [employer] DIV OF J AND J 06/12/2026 [id number] / / [id number] Reload Stplr Curtice Flex Gst Stnd 60 Wht - [id number] Implanted:Qty : 1 on 06/23/2024 by Johnnie Morton MD at [facility] Implant N/A: Abdomen [employer] DIV OF J AND J 08/10/2026 GST60W / / [id number] Stplr Lnr Cut Prox 75mm Keith Tlc75 - [id number] Implanted:Qty : 1 on 06/23/2024 by Johnnie Morton MD at [facility] Implant N/A: Abdomen [employer] DIV OF J AND J 02/09/2029 TLC75 / / [id number] Stplr Tiss [id number] Std [id number] Strl 1p/U - [id number] Implanted:Qty : 1 on 06/23/2024 by Johnnie Mortno MD at [facility] Implant N/A: Abdomen [employer] DIV OF J AND J 02/09/2027 [id number] / / [id number] Reload Stplr Lnr Cut Prox 75mm Keith Tcr75 - [id number] Implanted:Qty : 1 on 06/23/2024 by Johnnie Morton MD at [facility] Implant N/A: Abdomen [employer] DIV OF J AND J 04/11/2029 TCR75 / / [id number] Reload Stplr Lnr Cut Prox 75mm Keith Tcr75 - [id number] Implanted:Qty : 1 on 06/23/2024 by Johnnie Morton MD at [facility] Implant N/A: Abdomen [employer] DIV OF J AND J 12/10/2028 TCR75 / / [id number] Stplr Lnr Cut 60mm Keith Reg Tx60b - [id number] Implanted:Qty : 1 on 06/23/2024 by Johnnie Morton MD at [facility] Implant N/A: Abdomen [employer] DIV OF J AND J 01/10/2029 [id number] / / [id number] Insurance [employer] Advance Directives * CPR (Attempt to Resuscitate) (Latest Code Status on File) Date Activated Date Inactivated Comments 06/23/2024 4:43 PM 06/26/2024 12:13 PM Question Answer Comments Code Status (Patient has no pulse and is not breathing): CPR (Attempt to Resuscitate) Medical Interventions (Patie nt has pulse or is breathing): Full Support Level Of Support Discussed With: Patient Care Teams Digital Editor Relationship Specialty Start Date End Date Provider, [place] [address] PCP - General 05/29/24
--- OUTSIDE RECORDS SUMMARY | 2025-02-05 09:54 | XMS_ITS | Patient Health Record ---
Author Organization [facility] Address [address] [place] [id number] Care Team Providers Care Senior Java Data Architect Name Role Phone Luis Felipe Upton Primary Care Provider Jolynn Quick Unavailable [phone] Allergies No Known Allergies Results Component Value [...] - 38 plat 142 100 - 400 P-T4 Free (thyroxine) Reviewed date:08/21/2024 02:33:44 PM Interpretation:normal Performing Lab: Notes/Report: Test performed by [facility] [address] [place] [address] Taurus Urena MD, Irrigation Technician CLIA: [id number] Thyroxine Free (free T4) 1.31 0.86-1.76 ng/dL P-TSH Reviewed date:08/21/2024 02:33:44 PM Interpretation:7.96 Performing Lab: Notes/Report: Test performed by [facility] [address] [place], [place] [address], [address], [place] [address] Taurus Urena MD, Irrigation Technician CLIA: [id number] TSH 7.96 0.43-5.25 mU/L P-T4 Free (thyroxine) Reviewed date:10/23/2024 04:08:15 PM Interpretation:Normal Performing Lab: Notes/Report: Test performed by [facility] [address] [place] [address] , [address], [place] [address] Taurus Urena MD, Irrigation Technician CLIA: [id number] Thyroxine Free (free T4) 1.45 0.86-1.76 ng/dL P-TSH Reviewed date:10/23/2024 04:08:23 PM Interpretation:Normal Performing Lab: Notes/Report: Test performed by [facility] [address] [place] [address] , [address], [place] [address] Taurus Urena MD, Irrigation Technician CLIA: [id number] TSH 4.56 0.43-5.25 mU/L X ray : Shoulder, right Reviewed date:01/25/2025 10:14:29 PM Interpretation:No Acute Abnormality Performing Lab: Notes/Report: No Acute Abnormality CBC Fingerstick (in house) Reviewed date:02/14/2024 01:36:38 [...] - 38 plat 152 100 - 400 Reason For Referral Diagnosis 1 Acute pain of right shoulder (M25.511) Referral Organization [facility] Referring Provider First Name Jolynn Referring Provider Last Name Ynes Referring Provider Speciality Physician Sales Inspector Referred Provider Physical Therapy, . Referred Provider Specialty Physical The rapist General Notes Jolynn Quick 03/2025 02:53:44 PM > Pt would like to go to [facility] PT, Kayli Perez 10/21/2024 02:55:45 PM > faxed to [facility] PT Referral Priority Routine Diagnosis 1 Acute pain of right shoulder (M25.511) Referral Organization [facility] Referring Provider First Name Luis Felipe Referring Provider Last Name [place] Referring Provider Speciality Family Pra humphreyice Referred Provider Specialty Occupational Therapy General Notes Kayli Perez 2024 09:52:18 AM > faxed to [facility] PT Referral Priority Routine Reason Patient would like t o try dry needling; he has spoken to the physical therapist about this on the front and back delta Diagnosis 1 Acute pain of right shoulder (M25.511) Referral Organization [facility] Referring Provider First Name Jolynn Referring Provider Last Name Ynes Referring Provider Speciality Physician Sales Inspector Referred Provider Specialty Physical The rapist General Notes Kayli Perez 2024 10:39:42 AM > faxed to [facility] PT Referral Priority Routine Diagnosis 1 Acute pain of right shoulder (M25.511) [facility] Referring Provider First Name Jloynn Referring Provider Last Name Ynes Referring Provider Speciality Physician Sales Inspector Referred Provider Specialty Orthopedic S urgery General Notes Pt needs a referral to [facility] 01/21/2025 09:58:16 AM > appt 01/25/2025 at 10:15am; patient informed Referral Priority Routine Medications Medication SIG (Take, Route, Frequency, Duration) Notes Start Date End Date Status Levothyroxine Sodium 137 MCG 1 tablet in the morning on an empty stomach Orally Once a day; Duration: 30 days 08/21/2024 Active Multivitamin - 1 tab(s) orally once a day Active Immunizations Vaccine Route Administration Date Status Comme nts HEPB VACC PED/ADOL DOSE IM Unknown 02/01/1998 Administe red HEPB VACC PED/ADOL DOSE IM Unknown 03/07/1998 Administe red HEPB VACC PED/ADOL DOSE IM Unknown 09/09/1998 Administe red Problems Problem Type SNOMED Code ICD Code Onset Dates Problem Status W/U Status Risk Notes Problem Hypothyroidism (26349711) Hypothyroidism (acquired) (E03.9) Active confirmed Problem Body mass index 30.00 to 34.99 (791311565124514) BMI 31.0-31.9,adult (Z68.31) Active confirmed Problem Leucocytosis (208618303) Leucocytosis (D72.829) Active confirmed Problem Leukocytosis (537393694) Leukocytosis, unspecified (D72.829) Active confirmed Problem COVID-19 (406749110) COVID-19 (U07.1) Active confirmed Vital Signs Heart Rate 55 /min 01/20/2025 Blood pressure diastolic 70 mm Hg 01/20/2025 Height 71 in 01/20/2025 Blood pressure systolic 120 mm Hg 01/20/2025 Weight 226.2 lbs 01/20/2025 BMI 31.55 kg/m2 01/20/2025 Encounters Encounter Location Date Provider Diagnosis [facility] [address] [place], [place] [id number] 02/14/2024 Jolynn Crowdy Ruptured appendix K3 5.32 [facility] [address] [place], [place] [id number] 04/02/2024 Jolynn Crowdy Right lower quadrant pain R10.31 and History of appendicitis Z87.19 [facility] [address] [place], [place] [id number] 08/19/2024 Jolynn Crowdy Hypothyroidism (acqu ired) E03.9 and BMI 31.0-31.9,adult Z68.31 [facility] [address] [place], [place] [id number] 10/21/2024 Jolynn Crowdy Acute pain of right shoulder M25.511 and Hypothyroidism (acquired) E03.9 [facility] [address] [place], [place] [id number] 01/20/2025 Jolynn Crowdy Acute pain of right shoulder M25.511 [facility] [address] [place] [id number] 02/14/2024 Jolynn Crowdy [facility] [address] [place] [id number] 03/05/2024 Jolynn Crowdy [facility] [address] [place] [id number] 04/01/2024 Jolynn Crowdy [facility] [address] [place] [id number] 06/26/2024 Jolynn Crowdy [facility] [address] [place] [id number] 08/11/2024 Luis Felipe Upton [facility] [address] [place] [id number] 08/21/2024 Jolynn Quick [facility] [address] [place], [place] [id number] 10/22/2024 Jolynn Quick [facility] [address] [place] [id number] 10/23/2024 Jolynn Quick [facility] [address] [place] [id number] 11/17/2024 Jolynn Quick [facility] [address] [place], [place] [id number] 01/25/2025 Jolynn Quick Assessments Encounter Date Diagnosis (ICD Code) Assessment [...] keep appt with surgeon in a week. 04/02/2024 Right lower quadrant pain (ICD-10 - R10.31) Patient has no pain today. WBC is normal and patient is afebrile. Will continue to monitor and keep appt at [facility]. 04/02/2024 History of appendicitis (ICD-10 - Z87.19) 08/19/2024 Hypothyroidism (acquired) (ICD-10 - E03.9) 08/19/2024 BMI 31.0-31.9,adult (ICD-10 - Z68.31) 10/21/2024 Acute pain of right shoulder (ICD-10 - M25.511) 01/20/2025 Acute pain of right shoulder (ICD-10 - M25.511) 10/21/2024 Hypothyroidism (acquired) (ICD-10 - E03.9) Plan Of Treatment No Information Insurance Providers Payer Name Payer Address Payer Phone Subscriber Number Group Number Insured Name Patient Relationship to Insured Coverage Start Date Coverage End Date [facility] [address] [place] [address] [id number] COLBY STANTON Self - patient is the insured Medical (General) History Medical History History ICD Code Hypothyroidism COVID - 05/09/2020 Surgical History Surgery Date(Month/Year) mole removed Hospitalization History Reason Date(Month/Year) [facility] ER - broken bone in hand 11/2018 [facility] ER-syncope episode 10/26 [facility] ER - passed out 04/25/15
--- NOTE | 2025-02-05 10:00 | IR_ITS ---
FINAL REPORT CLINICAL HISTORY: right shoulder pain 0.23 MIN DAP:87.49 FINDINGS: RIGHT SHOULDER ARTHROGRAM HISTORY: Acute right shoulder pain. ATTENDING PHYSICIAN: Dr. Rodgers. PHYSICIAN EDGE TRIMMER MECHANIC: Gretchen Fowler PA-C. PROCEDURE: Informed consent was obtained from the patient. A timeout procedure was performed prior to beginning. Fluoroscopy was utilized to localize the right shoulder joint space. Skin was marked appropriately. The patient was prepped and draped in the usual sterile fashion over the right shoulder. Skin was anesthetized with 1% lidocaine. Access to the joint space was obtained using a 3-1/2 inch spinal needle. A small amount of Isovue contrast was injected to confirm needle placement. This was confirmed. Subsequently, approximately 20 mL of dilute gadolinium were gently injected into the joint space. The patient tolerated the procedure well and left the department in good condition. Fluoroscopy time: 0.23 Minutes Radiation exposure in total DAP: 87.49 uGym2 IMPRESSION: Technically successful right shoulder injection for MR arthrogram. Please see MR report. Reviewed, Interpreted and Dictated by Germaine Rodgers MD Transcribed by Gretchen Fowler PA-C Authenticated and [facility]
--- NOTE | 2025-02-05 11:00 | MR_ITS ---
FINAL REPORT TECHNIQUE: Multiplanar and multisequence imaging of the right shoulder was obtained after the intra-articular injection of a dilute gadolinium contrast solution. CLINICAL HISTORY: right shoulder pain (arthrogram) FINDINGS: Bones and joints: There is no acute fracture, edema, or pathologic marrow replacement. The acromioclavicular joint is intact. No evidence of AC joint separation. Rotator cuff: There is no full-thickness rotator cuff tendon tear. There is no extension of contrast in the subdeltoid bursa. The subscapularis tendon is intact. No biceps tendon dislocation. There is no fatty atrophy of the rotator cuff muscles. Labrum: No labral tear is identified. The inferior glenohumeral ligament is intact. No biceps tendon tear. Other: There is no joint effusion. Remaining soft tissues are within normal limits. IMPRESSION: No rotator cuff tendon tear or labral tear. Reviewed, Interpreted and Dictated by Germaine Rodgers MD Transcribed by Yanet Amaro Authenticated and [facility]
[2025-02-05] MEDS: IOPAMIDOL-300 (61%) 100ML VIAL IV (11:21)
[2025-02-05] MEDS: GADOTERIDOL INJ 10ML SYRINGE IV (11:21)
== END 2025-02-05 23:59 | disposition home or self-care (01) ==
LOC: RAD 09:52
PROVIDERS: PCP Physician Assistant; Visit Provider Orthopaedic Surgery
DX: M25.811 Other specified joint disorders, right shoulder (principal); M25.511 Pain in right shoulder
CPT/HCPCS: 73040; 73222; A9576; Q9967